=== PATIENT | male | born 1960 | race Caucasian/White ===

== ENCOUNTER 2020-02-29 12:09 | Outpatient (CLI) | payer OTHER, SELFPAY ==
--- NOTE | 2020-02-29 12:18 | USCV_ITS ---
Geovanni Servin Age: 59 Gender: M : 1960 Exam Date: 02/29/2020 12:28 Ordering Phys: Francis Barnes Technologist: Ciro Chan [place] [facility] [place]: CHEST PAIN BP: 150 / 80 HR: Rhythm: Sinus Technical Quality: Suboptimal MEASUREMENTS (Male / Female) Normal Values 2D ECHO LV Diastolic Diameter PLAX 4.6 cm 4.2 - 5.9 / 3.9 - 5.3 cm LV Systolic Diameter PLAX 2.8 cm IVS Diastolic Thickness 0.8 cm 0.6 - 1.0 / 0.6 - 0.9 cm IVS Systolic Thickness 1.4 cm LVPW Diastolic Thickness 1.2 cm 0.6 - 1.0 / 0.6 - 0.9 cm LVPW Systolic Thickness 1.7 cm LVOT Diameter 2.0 cm LV Ejection Fraction 2D Teich 71.2 % LV Ejection Fraction MOD 2C 67.1 % LV Ejection Fraction 2C AL 67.7 % LA Diameter 4.0 cm LA Width 3.5 cm LA Height 4.2 cm RA Width 3.6 cm RA Height 4.1 cm Aorta at Sinotubular Diameter 1.1 cm M-MODE LV Diastolic Diameter MM 6.3 cm 4.2 - 5.9 / 3.9 - 5.3 cm LV Systolic Diameter MM 4.3 cm LV Ejection Fraction MM Teich 59.6 % IVS Diastolic Thickness MM 1.0 cm 0.6 - 1.0 / 0.6 - 0.9 cm IVS Systolic Thickness MM 1.5 cm LVPW Diastolic Thickness MM 1.3 cm 0.6 - 1.0 / 0.6 - 0.9 cm LVPW Systolic Thickness MM 1.8 cm RV Diastolic Diameter MM 1.7 cm Aortic Annulus Diameter 3.3 cm LA Ao Ratio MM 1.5 MV E Point Septal Separation 1.3 cm DOPPLER AV Peak Velocity 176.0 cm/s LVOT Peak Velocity 96.0 cm/s AV Area Cont Eq vti 2.3 cm squared AV Area Cont Eq pk 1.8 cm squared MV Area PHT 5.1 cm squared Mitral E to A Ratio 1.0 MV E' Velocity 45.0 cm/s Mitral E to MV E' Ratio 10.9 Mitral E to LV E' Lateral Ratio 10.7 Mitral E to LV E' Septal Ratio 11.4 TR Peak Velocity 133.7 cm/s TR Peak Gradient 7.1 mmHg TV Peak E Velocity 76.0 cm/s Right Atrial Pressure 3.0 mmHg Pulmonary Artery Systolic Pressu 10.1 mmHg FINDINGS Left Ventricle Normal left ventricular cavity size. Normal left ventricular systolic function. No regional wall motion abnormalities. Left ventricular ejection fraction is estimated at 59 %. Grade II/IV diastolic dysfunction, moderately elevated filling pressures. Right Ventricle The right ventricle is normal in size and function. Right Atrium The right atrium is normal in size. Left Atrium The left atrium is normal in size. Mitral Valve Structurally normal mitral valve without significant stenosis or prolapse. There is no mitral regurgitation. Aortic Valve Moderate aortic valve calcification. No aortic valve stenosis. No aortic valve regurgitation. Tricuspid Valve Structurally normal tricuspid valve without significant stenosis or regurgitation. Pulmonary artery systolic pressure is normal. Pulmonic Valve Structurally normal pulmonic valve without significant stenosis. There is no pulmonic regurgitation. Pericardium Normal pericardium without effusion. Aorta Normal ascending aorta dimension. CONCLUSIONS 1-Normal left ventricular cavity size. Normal left ventricular systolic function. No regional wall motion abnormalities. Left ventricular ejection fraction is estimated at 59 %. Grade II/IV diastolic dysfunction, moderately elevated filling pressures. 2-Moderate aortic valve calcification. No aortic valve stenosis. No aortic valve regurgitation. 3-There is no pericardial effusion. 4-Pulmonary artery systolic pressure is within normal limits. 5-Right atrial pressure is around 5 mm of mercury. 6-There are no prior echocardiogram studies to compare. Meenu Cisneros MD (Electronically Signed) Final Date: 29 February 2020 15:27 S
== END 2020-02-29 12:10 | disposition home or self-care (01) ==
LOC: RAD 12:13
PROVIDERS: PCP Physician Assistant Medical; Visit Provider Physician Assistant Medical
DX: R07.9 Chest pain, unspecified (principal); I70.0 Atherosclerosis of aorta
CPT/HCPCS: 93306

== ENCOUNTER 2020-04-14 20:25 | Emergency (ER) | payer OTHER, SELFPAY ==
[2020-04-14] VITALS (7 sets, daily range): BP systolic 137–181; BP diastolic 53–88; PULSE 57–66; RESP 17–18; TEMP 36.7; O2SAT 90–97; BMI 33.4
--- NOTE | 2020-04-14 20:31 | XRR_ITS ---
PROCEDURE INFORMATION: Exam: XR Chest, 1 View Exam date and time: 04/14/2020 8:46 PM Age: 59 years old Clinical indication: Shortness of breath; Additional info: Cp TECHNIQUE: Imaging protocol: XR of the chest Views: 1 view. Total images: 1 COMPARISON: CR Chest 2 views* [id number] 02/08/2018 3:38 AM FINDINGS: Lungs: COPD/chronic bronchitis. Minimal discoid atelectasis lung bases. Pleural space: Unremarkable. No pleural effusion. No pneumothorax. Heart/Mediastinum: Unremarkable. No cardiomegaly. Bones/joints: Degenerative disease of the spine. XR/XR chest 1V portable [id number] IMPRESSION: 1. Nonac minimal discoid atelectasis lung bases. 2. COPD/chronic bronchitis.
--- NOTE | 2020-04-14 20:32 | ECG_ITS ---
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 Measurements Intervals [place] Rate: 61 P: 64 MI: 153 QRS: 80 QRSD: 132 T: 57 QT: 413 QTc: 418 Interpretive Statements SINUS RHYTHM RIGHT BUNDLE BRANCH BLOCK [120+ ms QRS DURATION, UPRIGHT V1, 40+ ms S IN I/aVL/V4/V5/V6] No previous ECG available for comparison Electronically Signed On 04-15-2020 20:15:56 ACUTE CARE PHYSICAL THERAPIST by Kaitlyn Pepper M.D. [id number]
--- NOTE | 2020-04-14 20:38 | ED_ITS ---
HPI - SOB/Dyspnea General: Chief Complaint: Shortness of Breath/Dyspnea Stated Complaint: SOB Time Seen by Provider: 04/14/20 20:27 Source: patient and EMS Mode of arrival: EMS Limitations: no limitations History of Present Illness: HPI Narrative: 59-year-old male who has a history of COPD states he started having some shortness of breath earlier today. He states he took a breathing treatment and felt improved but then started have a right-sided sharp chest pain he stated lasted 20 to 30 seconds. He states that it resolved. He states it was 2 hours ago. He states he called EMS. He states he feels much improved and has no complaints at this time. His pulse ox is 93% which he states is normal for him. Denies any recent long trips. Denies any recent surgeries. MD elicited complaint: shortness of breath Associated symptoms: Reports chest pain; Deny abdominal pain, fever(s), nausea or vomiting Review of Systems Const: Denies: fever(s), chills, body aches or change in appetite Eyes: Denies: blurry vision or eye discomfort ENMT: Denies: throat pain or dental pain Card: Reports: chest pain Resp: Reports: dyspnea GI: Denies: abdominal pain, nausea, vomiting or diarrhea : Denies: dysuria Musc: Denies: neck pain or back pain Skin/Breast: Denies: rash Neuro: Denies: headache(s) Psych: Denies: depression Benny/Lymph: Denies: easy bruising All/Imm: Denies: urticaria PFSH ED PFSH: Medical History Arthritis Chest pain The EKG done today revealed normal sinus rhythm with right bundle branch block. No significant ST-T changes. COPD (chronic obstructive pulmonary disease) Smoked for 30 years or so , 3PPD, quit 10 y;ears ago Elevated blood pressure reading Fracture, clavicle Heart murmur Leg fracture Shortness of breath SOB (shortness of breath) Family History Brother CAD (coronary artery disease) Lung disease Mother Chronic kidney disease (CKD) Lung disease Family/Other Diabetes Father Lung disease Denies family history of Clotting disorder Dementia Suicide Anesthesia complication Bleeding disorder Cancer Stroke Social History Smoking and tobacco status: current every day smoker smokeless tobacco Smokeless tobacco user: chewing tobacco Alcohol intake: current Alcohol intake frequency: holidays/special occasions only Physical Exam Const: COMMON NORMALS: no acute distress, patient oriented x3 and healthy appearing HENMT: COMMON NORMALS: normocephalic and atraumatic HEAD & SCALP: normocephalic and atraumatic Eye: COMMON NORMALS: Equal, round and reactive pupils present and EOMs intact bilaterally PUPIL: Yes Equal, round and reactive pupils present Neck/C-Spine: COMMON NORMALS: full ROM and supple Chest: COMMONS NORMALS: normal inspection of the chest and normal palpation of entire chest wall Resp: COMMON NORMALS: normal respiratory effort, No retractions, No use of accessory muscles and clear to auscultation bilaterally AUSCULTATION: clear to auscultation bilaterally Cardio: COMMON NORMALS: regular rate, regular rhythm and No murmurs present (Cardio) RATE: regular rate RHYTHM: regular rhythm GI: COMMON NORMALS: Normal to inspection, nondistended, normoactive bowel sounds present, Soft to palpation, non-tender and no masses PALPATION: Yes Soft to palpation Extremity: COMMON NORMALS: normal to inspection and full ROM Neuro: COMMON NORMALS: patient oriented x3, moves all extremities and no focal motor deficits Psych: COMMON NORMALS: mental status grossly normal, Normal thought process present and cooperative THOUGHT PROCESS: Normal thought process present Skin: COMMON NORMALS: no rashes or lesions noted and no wounds GENERAL SKIN EXAM: no rashes or lesions noted Course Vital Signs: Vital signs: Vital Signs Temperature 98.0 F 04/14/20 20:33 Pulse Rate 61 04/14/20 22:26 Respiratory Rate 18 04/14/20 22:26 Blood Pressure 145/72 04/14/20 22:26 Pulse Oximetry 92 04/14/20 22:26 MDM - SOB/Dyspnea MDM Narrative: Medical decision making narrative: Geovanni presents here with chest pain is atypical in nature. Patient's initial and repeat troponins are normal. He has a stress test set up for Tuesday. I feel he is stable for discharge and is to follow-up then. He is return if worsening. He understands agrees to plan Lab Data: Labs: Lab Results 04/14/20 04/14/20 04/14/20 Range/Units 20:44 20:44 20:44 WBC 13.5 H (4.0-10.0) 10^3/ uL RBC 4.56 (4.1-5.3) 10^6/u L Hgb 12.9 (11.7-16.6) g/dL Hct 41.2 L (42.0-52.0) % MCV 90.4 (80-94) fL MCH 28.3 (28.0-34.0) pg MCHC 31.3 (30.0-36.0) g/dL RDW 12.9 (12.1-15.1) % Plt Count 299 (130-400) 10^3/c mm MPV 10.3 (7.4-10.4) fL Neut % (Auto) 62.8 % Lymph % (Auto) 25.2 % [place] % (Auto) 6.8 % Eos % (Auto) 3.6 % Baso % (Auto) 0.9 % Neut # (Auto) 8.45 H (1.8-7.7) 10^3/u L Lymph # (Auto) 3.4 (0.8-4.8) 10^3/u L [place] # (Auto) 0.9 (0.2-0.9) 10^3/u L Eos # (Auto) 0.5 (0.0-0.8) 10^3/u L Baso # (Auto) 0.1 (0.0-0.1) 10^3/u L Nucleated RBC % (a uto) 0 % Nucleated RBCs # 0.0 /100WBC Sodium 136 (136-145) mmol/L Potassium 4.5 (3.5-5.1) mmol/L Chloride 98 (98-107) mmol/L Carbon Dioxide 29 (22-29) mmol/L Anion Gap 13.5 (5-19) BUN 15 (8-23) mg/dL Creatinine 0.9 (0.7-1.2) mg/dL GFR Calculation 85.8 L (90-130) mL/min Glucose 194 H (65-115) mg/dL Calculated Osmolal ity 288 (285-295) mOsm/k g Calcium 9.3 (8.5-10.5) mg/dL Total Bilirubin 0.3 (0.15-1.2) mg/dL AST 20 (0-40) U/L ALT 30 (0-41) U/L Alkaline Phosphata se 68 (40-130) IU/L Troponin T Baselin e 25 H (0-15) ng/L Troponin T 120 Min [place] (0-15) ng/L Delta Troponin T (0-10) ABS# NT-Pro-B Natriuret Pep 205 H (0-125) pg/mL Total Protein 6.7 (6.6-8.7) g/dL Albumin 4.0 (3.5-5.2) g/dL Globulin 2.7 (1.3-4.6) g/dL 04/14/20 Range/Units 22:24 WBC (4.0-10.0) 10^3/ uL RBC (4.1-5.3) 10^6/u L Hgb (11.7-16.6) g/dL Hct (42.0-52.0) % MCV (80-94) fL MCH (28.0-34.0) pg MCHC (30.0-36.0) g/dL RDW (12.1-15.1) % Plt Count (130-400) 10^3/c mm MPV (7.4-10.4) fL Neut % (Auto) % Lymph % (Auto) % [place] % (Auto) % Eos % (Auto) % Baso % (Auto) % Neut # (Auto) (1.8-7.7) 10^3/u L Lymph # (Auto) (0.8-4.8) 10^3/u L [place] # (Auto) (0.2-0.9) 10^3/u L Eos # (Auto) (0.0-0.8) 10^3/u L Baso # (Auto) (0.0-0.1) 10^3/u L Nucleated RBC % (a uto) % Nucleated RBCs # /100WBC Sodium (136-145) mmol/L Potassium (3.5-5.1) mmol/L Chloride (98-107) mmol/L Carbon Dioxide (22-29) mmol/L Anion Gap (5-19) BUN (8-23) mg/dL Creatinine (0.7-1.2) mg/dL GFR Calculation (90-130) mL/min Glucose (65-115) mg/dL Calculated Osmolal ity (285-295) mOsm/k g Calcium (8.5-10.5) mg/dL Total Bilirubin (0.15-1.2) mg/dL AST (0-40) U/L ALT (0-41) U/L Alkaline Phosphata se (40-130) IU/L Troponin T Baselin e (0-15) ng/L Troponin T 120 Min [place] 26.97 H (0-15) ng/L Delta Troponin T 1.97 (0-10) ABS# NT-Pro-B Natriuret Pep (0-125) pg/mL Total Protein (6.6-8.7) g/dL Albumin (3.5-5.2) g/dL Globulin (1.3-4.6) g/dL Imaging Data^: CXR: Radiologist's impression: [place] [address] XRay Report Signed Patient: Geovanni Servin Unit #: [id number] : 1960 Age/Sex: 59 / M ADM Date: 04/14/20 Loc: ER Room/Bed: Attending Dr: Ordering Provider/Ordering MD: Suzette Dai MD Date of Service: 04/14/20 Procedure(s): XR chest 1V portable [id number] Accession Number(s): [id number] Report Number: [id number] PROCEDURE INFORMATION: Exam: XR Chest, 1 View Exam date and time: 04/14/2020 8:46 PM Age: 59 years old Clinical indication: Shortness of breath; Additional info: Cp TECHNIQUE: Imaging protocol: XR of the chest Views: 1 view. Total images: 1 COMPARISON: CR Chest 2 views* [id number] 02/08/2018 3:38 AM FINDINGS: Lungs: COPD/chronic bronchitis. Minimal discoid atelectasis lung bases. Pleural space: Unremarkable. No pleural effusion. No pneumothorax. Heart/Mediastinum: Unremarkable. No cardiomegaly. Bones/joints: Degenerative disease of the spine. XR/XR chest 1V portable [id number] IMPRESSION: 1. Nonac minimal discoid atelectasis lung bases. 2. COPD/chronic bronchitis. EKG Data^: EKG 1: Attestation: I personally reviewed and interpreted this EKG as follows: EKG Interpretation Date: 04/14/20 EKG interpretation time: 20:34 Interpretation: Normal sinus rhythm heart rate [address] or T wave abnormalities QRS 132 QTC 416 Discharge Plan Discharge Patient Disposition: Home Clinical Impression: Chest pain Qualifiers: Chest pain type: unspecified Qualified Code(s): R07.9 - Chest pain, unspecified Condition: Stable Prescriptions: No Action tamsulosin 0.4 mg capsule 0.4 mg PO DAILY@21 RF: 0 tadalafil 5 mg tablet See Rx Instructions .ROUTE .COMPLEX RF: 0 Breztri Aerosphere 160-9-4.8 mcg/actuation HFA aerosol inhaler 2 inh inhalation BID RF: 0 albuterol sulfate 2.5 mg /3 mL (0.083 %) solution for nebulization 2.5 mg inhalation QID PRN (Reason: shortness of breath or wheezing) RF: 0 nitroglycerin 0.4 mg tablet, sublingual 0.4 mg sublingual Q5M PRN (Reason: chest pain) 30 Days Qty: 30 RF: 3 Aspir-81 81 mg Tablet,Delayed Release (Dr/Ec) 81 mg PO DAILY@04 RF: 0 ibuprofen 200 mg Tablet 400 mg PO PRN RF: 0 Ventolin HFA 90 mcg/actuation HFA aerosol inhaler 2 puff INHALATION Q4H PRN (Reason: Shortness Of Breath) RF: 0 Glucosamine Chondroitin 550-30-1 mg Capsule 1 cap PO BID@ RF: 0 Lung Renew 1 cap PO BID RF: 0 Turmeric Curcumin 500 mg PO DAILY@04 RF: 0 amlodipine 10 mg tablet 5 mg PO BID@ RF: 0 metoprolol tartrate 25 mg tablet 25 mg PO Q12H RF: 0 Discharge Orders: Discharge ED (Routine); Ordered 04/14/20 Ordered By: Suzette Dai Referrals: Francis Barnes [Primary Care Provider] - Discharge Diet: Advance as tolerated Discharge Activity: Resume usual activity Patient Instructions: Chest Pain (ED) Coding Level of Care Code ED Dining Car Server for Chg Fwd Exam Comprehensive
[2020-04-14 20:54] LABS: Basophils # 0.1 10^3/uL (0.0-0.1); Basophils % 0.9 %; Eosinophils # 0.5 10^3/uL (0.0-0.8); Eosinophils % 3.6 %; Hematocrit 41.2 % (42.0-52.0); Hemoglobin 12.9 g/dL (11.7-16.6); Lymphocytes # 3.4 10^3/uL (0.8-4.8); Lymphocytes % 25.2 %; Mean Corpuscular HGB Conc 31.3 g/dL (30.0-36.0); Mean Corpuscular Hemoglobin 28.3 pg (28.0-34.0); Mean Corpuscular Volume 90.4 fL (80-94); Mean Platelet Volume 10.3 fL (7.4-10.4); Monocytes # 0.9 10^3/uL (0.2-0.9); Monocytes % 6.8 %; Neutrophils # 8.45 10^3/uL (1.8-7.7); Neutrophils % 62.8 %; Nucleated Red Blood Cells % 0 %; Platelet Count 299 10^3/cmm (130-400); Red Blood Count 4.56 10^6/uL (4.1-5.3); Red Cell Distribution Width 12.9 % (12.1-15.1); White Blood Count 13.5 10^3/uL (4.0-10.0)
[2020-04-14 21:10] LABS: Troponin(5th) Baseline 25 ng/L (0-15)
[2020-04-14 21:18] LABS: Alanine Aminotransferase 30 U/L (0-41); Alkaline Phosphatase 68 IU/L (40-130); Anion Gap 13.5 (5-19); Aspartate Amino Transferase 20 U/L (0-40); Blood Urea Nitrogen 15 mg/dL (8-23); Calcium 9.3 mg/dL (8.5-10.5); Carbon Dioxide 29 mmol/L (22-29); Chloride 98 mmol/L (98-107); Globulin 2.7 g/dL (1.3-4.6); Glomerular Filtration Rate 85.8 mL/min (90-130); Glucose 194 mg/dL (65-115); NT Pro B Type Natriuretic Pept 205 pg/mL (0-125); Osmolality Calculated 288 mOsm/kg (285-295); Potassium 4.5 mmol/L (3.5-5.1); Sodium 136 mmol/L (136-145); Total Bilirubin 0.3 mg/dL (0.15-1.2); Total Protein 6.7 g/dL (6.6-8.7)
[2020-04-14] MEDS: hyDRALAzine 20 mg/mL INJ 1 mL 10 MG IVP (21:42)
--- NOTE | 2020-04-14 21:42 | PC.PHAR ---
pt brought in medication bottles-pt states he uses the albuterol in the nebulizer bid-pt states he uses the breztri inhaler sometimes-pt states the dr told him to stop taking the tadalafil 5mg ext med history shows filled on 03/24/2020 90d/s-pt states his amlodipine is 10mg po daily pt states he has been taking his 5mg tab bid
[2020-04-14] MEDS: albuterol 8 gm MDI 2 PUFF INHALATION (21:48)
[2020-04-14 22:45] LABS: Troponin 5 2HR 26.97 ng/L (0-15); Troponin 5 2HR Delta 1.97 ABS# (0-10)
== END 2020-04-14 23:03 | disposition home or self-care (01) ==
PROVIDERS: Emergency Provider Emergency Medicine; PCP Physician Assistant Medical
DX: R07.9 Chest pain, unspecified (principal); Z79.82 Long term (current) use of aspirin; J44.9 Chronic obstructive pulmonary disease, unspecified; F17.220 Nicotine dependence, chewing tobacco, uncomplicated
CPT/HCPCS: 12345; 71045; 80053; 83880; 84484; 85025; 93005; 94640; 96374; 96375; 99282; 99284; J0360; J2930; J3535

== ENCOUNTER 2020-04-18 09:03 | Outpatient (CLI) | payer OTHER, SELFPAY ==
[2020-04-18 09:25] VITALS: BMI 36.5
--- NOTE | 2020-04-18 09:25 | ECG_ITS ---
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 Interpretive Statements NAME OF STUDY: LEXISCAN SESTAMIBI STRESS TEST INDICATION: Chest Pain, PROCEDURE: At the baseline, the EKG revealed sinus bradycardia with right bundle branch block pattern. No significant ST-T changes.. The baseline blood pressure was 153/83 mm Hg with a heart rate of 51 beats/min. Lexiscan was infused over a period of 20 seconds. A total of 0.4 milligrams of Lexiscan was infused. The stress phase was continued for a total of 5 minutes. Heart rate at the end of the stress phase was 65 with a blood pressure 161/76. The EKG at the peak infusion revealed no significant changes. Sestamibi was injected 20 seconds after the Lexiscan infusion. Blood pressure at the end of the recovery phase was not obtained ; the heart rate was 66 per minute. CONCLUSION: 1. No significant EKG changes with the LexiScan infusion 2. No LexiScan induced chest pain or cardiac arrhythmia 3. Normal blood pressure and heart rate response 4. Sestamibi/sestamibi perfusion scan pending; see separate report. Electronically Signed On 04-25-2020 12:01:57 DONOR CENTER TECHNICIAN by Juliet Richardson M.D. [id number]
--- NOTE | 2020-04-18 09:26 | NMCV_ITS ---
NM lizeth perf SPECT r/s* [id number] Geovanni Servin Age: 59 Gender: M : 1960 Exam Date: 04/18/2020 10:21 Ordering Phys: Juliet Richardson MD ([email or web address]) Technologist: KENNY Greer Exam Location: [facility] Indications: SHORTNESS OF BREATH STRESS TEST Please see separate stress test report in [facility] for full findings IMAGE PROTOCOL Rest/Stress 1 Lexiscan Day Radiopharmaceutical Dose (mCi) Administration Site Administered by Rest: Tc-99m 10.5 IV KENNY Greer Sestamibi Stress:Tc-99m 32.6 IV KENNY Silva Sestamibi Rest: 18-Apr-2020 60 Discovery 630 Stress: 18-Apr-2020 30 Discovery 630 0.4mg Lexiscan. Images obtained in supine and prone position. SPECT RESULTS Technical Quality: Excellent Raw Data Analysis: Normal Image Corrections: No attenuation or motion correction applied Summed Stress Score: 11 Summed Rest Score: 2 Summed Difference Score: 9 PERFUSION FINDINGS Moderate area of decreased tracer uptake was noted in the mid and apical inferior, mid inferoseptal, mid anteroseptal, and all the apical segments including LV apex. Significant reversibility was noted in all the segments. FUNCTIONAL RESULTS (calculated via Gated SPECT) Stress Image LV EF (%): 72 Stress EDV (mL):103 TID: 0.94 Stress ESV (mL):29 FUNCTIONAL FINDINGS: Segmental wall motion analysis revealing no gross wall motion normalities. IMPRESSIONS 1. Myocardial perfusion imaging revealing moderate area of decreased tracer uptake in the inferior, septal, anteroseptal and apical segments with significant reversibility, suggestive of ischemia mostly in the distribution of the left and descending artery and right coronary artery. 2. Normal LV ejection fraction 72%. 3. LV wall motion analysis revealing no gross wall motion abnormalities. 4. Normal LV volume. No similar previous studies are available for comparison Dr Juliet Richardson MD FAC (Electronically Signed) Final Date: 18 April 2020 16:23 S
[2020-04-18] MEDS: regadenoson 0.4 Mg/5 ml Syringe IVP (10:53)
[2020-04-18 11:11] VITALS: BP 158/66; PULSE 67
== END 2020-04-18 09:04 | disposition home or self-care (01) ==
LOC: CDL 09:04
PROVIDERS: PCP Physician Assistant Medical; Visit Provider Internal Medicine Cardiovascular Disease
DX: R06.02 Shortness of breath (principal); R07.9 Chest pain, unspecified
CPT/HCPCS: 78452; 93017; A9500; J2785

== ENCOUNTER → 2020-05-28 13:56 | Outpatient (BNVA) | payer OTHER, SELFPAY | PROVIDERS: PCP Physician Assistant Medical; Visit Provider Internal Medicine Cardiovascular Disease | DX: Z20.822 Contact with and (suspected) exposure to COVID-19 (principal) | CPT/HCPCS: 87635 ==

== ENCOUNTER 2020-06-03 09:37 | Observation (INO) | payer OTHER, SELFPAY ==
[2020-05-28 14:08] LABS: Basophils # 0.1 10^3/uL (0.0-0.1); Basophils % 0.8 %; Eosinophils # 0.5 10^3/uL (0.0-0.8); Hematocrit 42.6 % (42.0-52.0); Hemoglobin 13.3 g/dL (11.7-16.6); Lymphocytes # 2.6 10^3/uL (0.8-4.8); Lymphocytes % 21.9 %; Mean Corpuscular HGB Conc 31.2 g/dL (30.0-36.0); Mean Corpuscular Hemoglobin 28.5 pg (28.0-34.0); Mean Corpuscular Volume 91.4 fL (80-94); Mean Platelet Volume 9.7 fL (7.4-10.4); Monocytes # 1.1 10^3/uL (0.2-0.9); Monocytes % 8.9 %; Neutrophils # 7.53 10^3/uL (1.8-7.7); Neutrophils % 63.6 %; Nucleated Red Blood Cells % 0 %; Platelet Count 305 10^3/cmm (130-400); Red Blood Count 4.66 10^6/uL (4.1-5.3); White Blood Count 11.8 10^3/uL (4.0-10.0)
[2020-05-28 14:42] LABS: Alanine Aminotransferase 31 U/L (0-41); Albumin Level 4.1 g/dL (3.5-5.2); Alkaline Phosphatase 69 IU/L (40-130); Anion Gap 11.5 (5-19); Aspartate Amino Transferase 26 U/L (0-40); Blood Urea Nitrogen 17 mg/dL (8-23); Calcium 9.2 mg/dL (8.5-10.5); Carbon Dioxide 29 mmol/L (22-29); Chloride 100 mmol/L (98-107); Chol HDL Ratio 2.49 mg/dL (1.0-5.00); Cholesterol 112 mg/dL (0-200); Globulin 3.5 g/dL (1.3-4.6); Glomerular Filtration Rate 98.3 mL/min (90-130); Glucose 85 mg/dL (65-115); HDL Cholesterol 45 mg/dL (60-100); LDL Cholesterol Calculated 50 mg/dL (50-129); LDL HDL Ratio 1.11 RATIO (0.00-3.22); Osmolality Calculated 283 mOsm/kg (285-295); Potassium 4.5 mmol/L (3.5-5.1); Sodium 136 mmol/L (136-145); Total Bilirubin 0.3 mg/dL (0.15-1.2); Total Protein 7.6 g/dL (6.6-8.7); Triglycerides 83 mg/dL (0-150)
[2020-05-28 14:55] LABS: INR 0.96 (0.8-1.2)
[2020-06-03] VITALS (44 sets, daily range): BP systolic 114–166; BP diastolic 60–81; PULSE 46–64; RESP 7–24; TEMP 36.3–36.6; O2SAT 90–96; BMI 34.8
[2020-06-03] MEDS: diphenhydrAMINE 50 mg Capsule PO (07:30)
--- NOTE | 2020-06-03 08:19 | W.PM.OPSUD ---
Surgery/Procedure H&P Update DATE OF PROCEDURE: June 03, 2020 DATE H&P PERFORMED: 06/03/20 H&P UPDATE INFORMATION: I have reviewed H&P completed within last 30 days and I have examined patient prior to procedure PREOP DIAGNOSIS: ASHD/Abnormal stress test PRIMARY INDICATION FOR PROCEDURE: Chest pain PLANNED PROCEDURE: Operation Date: 06/03/20 08:30 Proposed Procedures p left Cardiac Catheterization 40179 R94.39(Left) - Juliet Richardson MD PATIENT REASSESSED PRIOR TO SEDATION, WITH NO CHANGE NOTED: Yes PHYSICAL EXAM: alert, oriented x 3, clear to auscultation bilaterally and regular rate & rhythm AIRWAY EVAL/ANESTHESIA PLAN: normal airway, ASA II, Monitored Anesthesia, Local Anesthesia, Risks, benefits & alternatives of sedation and/or procedure discussed and Patient agrees to continue as planned
--- NOTE | 2020-06-03 08:21 | P.HP_ITS ---
Providers/Chief Complaint Admitting Physician: DR MARIUSZ Richardson Primary Care Provider: Francis Barnes Chief Complaint: left Cardiac Catheterization History of Present Illness Geovanni Servin is a 59 year old male with a history of COPD/dyslipidemia, patient with chest pain. He had a myocardial perfusion imaging which revealed areas of reversible defects, suggestive of ischemia in the distribution of the left anterior descending artery and the right coronary artery. Continues to have shortness of breath with activities, limiting his exercise tolerance. For further evaluation of his symptoms, a cardiac catheterization was recommended. Patient described the pain as pressure-like in nature, each time lasting for 5 to 10 minutes and then goes away, usually with rest. The pain radiates to the both arms and also the neck. He has these episodes of pain at least 2 or 3 times a week. Review of Systems Narrative: CONSTITUTIONAL: No fever or chills. Has easy fatigability and shortness of breath with exertion EYES: No blurring of vision or other visual disturbances lately. ENT: No hoarseness of voice, auditory disturbances or sore throat. CARDIOVASCULAR: As mentioned above. RESPIRATORY: History of COPD GASTROINTESTINAL: No hematemesis or melena. GENITOURINARY: No dysuria or hematuria. INTEGUMENTARY: No skin rashes or history of skin cancer. NEURO: No transient ischemic attacks or amaurosis. PSYCHIATRIC: No history of psychosis or major depression. HEMATOLOGIC: No bleeding disorders or significant anemia. ENDOCRINE: No history of polyuria or polydipsia. MUSCULOSKELETAL: No recent joint pain or swelling. ALLERGY/IMMUNOLOGY: As mentioned above. Medications/Allergies Home Medications Medication Instructions Recorded Confirmed Last Taken Type albuterol sulfate 2.5 mg INHALATION QID PRN 03/24/20 06/03/20 06/03/20 05:00 History budesonide 160 mcg-glycopyr 9 2 inh INHALATION BID 03/24/20 06/03/20 06/03/20 05:00 History mcg-formot 4.8 mcg/actuation HFA inhaler nitroglycerin 0.4 mg sublingual 0.4 mg SUBLINGUAL Q5M PRN 30 Days 03/24/20 06/03/20 04/14/20 18:45 Rx tablet #30 tab tamsulosin 0.4 mg capsule 0.4 mg PO DAILY@21 03/24/20 06/03/20 06/03/20 05:00 History Lung Renew 1 cap PO BID 04/14/20 06/03/20 06/03/20 05:00 History Turmeric Curcumin 500 mg PO DAILY@04 04/14/20 06/03/20 06/03/20 05:00 History albuterol sulfate [Ventolin HFA] 2 puff INHALATION Q4H PRN 04/14/20 06/03/20 06/03/20 05:00 History amlodipine 5 mg PO BID@04/14/20 06/03/20 06/03/20 05:00 History aspirin [Aspir-81] 81 mg PO DAILY@04 04/14/20 06/03/20 06/03/20 05:00 History glucos sul 2GHk-vlu-ewxdr-C-Mn 1 cap PO BID@04/14/20 06/03/20 06/03/20 05:00 History [Glucosamine Chondroitin] ibuprofen 400 mg PO PRN 04/14/20 06/03/20 Unknown History metoprolol tartrate 25 mg PO Q12H 04/14/20 06/03/20 06/03/20 05:00 History atorvastatin 40 mg tablet 40 mg PO DAILY 30 Days #30 tab 04/28/20 06/03/20 06/02/20 21:00 Rx Allergies Allergy/AdvReac Type Severity Reaction Status Date / Time No Known Allergies Allergy Verified 06/03/20 08:02 PFSH Acute PFSH: Medical History Arthritis Chest pain The EKG done today revealed normal sinus rhythm with right bundle branch bloc k. No significant ST-T changes. COPD (chronic obstructive pulmonary disease) Smoked for 30 years or so , 3PPD, quit 10 y;ears ago Elevated blood pressure reading Fracture, clavicle Heart murmur Leg fracture Shortness of breath SOB (shortness of breath) Family History Brother CAD (coronary artery disease) Lung disease Mother Chronic kidney disease (CKD) Lung disease Family/Other Diabetes Father Lung disease Denies family history of Clotting disorder Dementia Suicide Anesthesia complication Bleeding disorder Cancer Stroke Social History Smoking and tobacco status: current every day smoker smokeless tobacco Smokeless tobacco user: chewing tobacco Alcohol intake: current Alcohol intake frequency: holidays/special occasions only Vitals/I&O/Wt Last Vital Signs Temp 97.3 F L 06/03/20 07:51 Pulse 54 L 06/03/20 07:51 Resp 14 06/03/20 07:51 BP 144/77 06/03/20 07:51 Pulse Ox 94 06/03/20 07:51 Weight last 48 hrs Weight 229 lb Physical Exam Narrative: EXAM NARRATIVE: GENERAL: The patient is alert and oriented times three. Not in any acute distress. HEENT: No significant pallor, icterus or lymphadenopathy. The pupils are reactant to light. Oral cavity: There are no mucous membrane lesions. Funduscopic examination: The fundus is not visualized NECK: Trachea appears to be central. No masses noted. No JVD or thyromegaly appreciated. No carotid bruit. RESPIRATORY: Chest is symmetrical. No intercostals muscle retraction or any accessory muscle activation. There is no chest wall tenderness. Breath sounds are heard bilaterally. No rales or rhonchi heard. No evidence of any consol idation. BREASTS: Deferred. HEART: The heart sounds are normal. No S3 or S4. Short systolic murmur in the aortic area. No diastolic murmurs. No pericardial rub. ABDOMEN: No vessel pulsations or distention. No tenderness. No organomegaly appreciated. No abdominal bruit. Bowel sounds are normally heard. : Deferred. RECTAL: Deferred. LYMPHATIC: No lymphadenopathy noted in the neck or groin. EXTREMITIES: No edema or cyanosis. No clubbing. The pulses are symmetrical bilaterally. The radial, femoral, dorsalis pedis and the posterior tibial pulses are palpated and found to be in good volume and amplitude. MUSCULOSKELETAL: No acute joint deformities or swelling. SKIN: There are no significant scars or skin rash noted. NEUROPSYCHIATRIC: The patient is alert and oriented x3. Appears to be in a good mood. The higher functions are grossly within normal limits. No tremors or rigidity noted. Data : 05/28/20 13:30 05/28/20 13:30 A&P Assessment and plan (1) Abnormal cardiovascular stress test: I discussed with the patient, the implication of the test findings. In order to further evaluate his coronary status, he requires a cardiac catheterization. The risk of bleeding, hematoma, vascular injury, myocardial infarction, CVA, renal failure and other concomitant complications were explained in detail. Patient understood this well and consented to proceed. Status: Acute (2) Dyslipidemia: Continue on the current medications Status: Acute (3) SOB (shortness of breath): This could be multifactorial. Ischemia could be contributing factor. Patient is known to have COPD. Continue on the current treatment for the COPD. Status: Acute (4) Elevated blood pressure reading: Currently normotensive. Continue on the current medications Status: Acute Additional A&P Information Based on the results of the above test, further recommendations will be made. Addendum Patient underwent left heart catheterization with left and right coronary angiogram today. He was found to have a high-grade lesion in the proximal to mid LAD. Since the coronary lesion is complex he would benefit from atherectomy followed by angioplasty and stent placement. This is going to be done tomorrow. The patient is admitted to hospital for close monitoring and management. Attestations Medical Necessity Statement*: Patient may require 1 midnight stay, for further management of his condition. Coding Level of Care Code Acute Ethnic Origins Teacher for Yaneli Ordonez Diagnoses Abnormal cardiovascular stress test R94.39 Dyslipidemia E78.5 SOB (shortness of breath) R06.02 Elevated blood pressure reading R03.0
--- NOTE | 2020-06-03 08:30 | XACV_ITS ---
Ht: 173 cm Wt: 104 kg BSA: 2.27 m2 Gender: Male : 1960 Any Known Allergies: No known allergies Exam Priority: Routine Procedure(s): Procedure Description: Diagnostic procedure Diagnostic Cath Status: Elective Diagnostic Findings * No significant disease noted in the Left Main, LAD, Circumflex, or RCA coronary arteries. * The left main is a medium to large caliber vessel with minimal ostial narrowing. No significant stenotic lesions were noted. * The left-sided descending artery is a medium caliber vessel which appears to wrap around the LV apex. The proximal LAD was found to have an eccentric tapering narrowing of around 50% mid to the ostium. Just before the second septal rrt, there was a high-grade calcified lesion of around 90%. The proximal to mid LAD was found to have diffuse disease. The distal LAD was found to have mild diffuse intimal irregularities. Around the apex, the artery was found to have around 50% tubular narrowing. No other significant stenotic lesions were noted.. * The left circumflex artery is a medium caliber vessel which was found to have around 40% tubular narrowing proximally. The first and second obtuse marginal branches were found to have mild diffuse disease. No significant stenotic lesions were noted. * The right coronary artery is a medium caliber vessel with mild diffuse disease, lesions ranging from 20 to 30%. No significant stenotic lesions were seen. Conclusions 1. Normal left ventricular systolic function. Ejection fraction of 55%. 2. 59-year-old white male presents with complaints of chest pain and shortness of breath. Abnormal myocardial perfusion imaging suggesting ischemia in the distribution of the left anterior descending artery. For further evaluation of the patient's coronary status, a cardiac catheterization was recommended. Patient underwent left heart catheterization with left and right coronary angiogram, and LV angiogram today. The findings are as follows. 3. Moderate to heavy calcification in the proximal to mid left and descending artery. High-grade stenosis in the mid LAD, of around 90% just before the second septal rrt. Mild diffuse disease in the mid and distal segments of the arteries. Mild diffuse disease in the other vessels. Normal LV ejection fraction of 55%. LVEDP of 30 mmHg. Based on the cardiac catheterization data, for further management of the patient's condition, PCI of the LAD lesion was thought to be appropriate. I discussed and reviewed the cardiac catheterization data with Dr. Cisneros. Dr. Cisneros agreed with this plan and will be assuming the further care of this patient. 4. Restenosis high. Recommendations * Continue current medical management and risk factor modification. Diagnostic RX Recommendation: PCI w/o planned CABG LV EDP: 30 mmHg Ventriculography Ejection Fraction: 55.0 % Left Ventriculography Findings: * The LV gram was performed the COTTON projection. The LV cavity appears to be of normal size. The overall ejection fraction was around 55%. No filling defects were noted. No significant mitral valve prolapse or mitral regurgitation. The LVEDP was 30 mmHg. Pressures Phase:Rest AO : 95 / 59 ( 74 ) @ 4:02:00 AM 103 / 64 ( 81 ) @ 4:06:00 AM 123 / 66 ( 90 ) @ 4:12:00 AM LV : 136 / 8 / @ 4:10:00 AM 132 / 14 / @ 4:11:00 AM 133 / 11 / @ 4:11:00 AM Clinical Evaluation EBL: 5mL-10mL Procedural Details Procedure Consent Obtained. Pre-Procedure Time Out. Identified patient by full name and date of as verbalized by the patient/guarantor. Does the consent match the physician's order: Yes. Accurate & Complete Informed Consent: Yes. Inpatient/Outpatient History & Physical on Chart: Yes. If H&P is completed, is and addenduem needed: No; If yes, is the addendum complete: N/A. Visualize and Verify Site with Patient/Guarantor: N/A. Relevant Radiology Images available: N/A. Pre-op teaching completed and patient verbalized understanding. The risks, benefits, and alternatives of sedation and/or procedure were discussed by physician. The patient agrees to continue. Procedure started. [facility] Clinical Fraility Score: 4: Vulnerable. Operations Expert Indications: Other-abnormal stress test. Chest Pain Symptom Assessment: Typical Angina Symptoms. Cardiovascular Instability: No. Correct patient, site and procedure confirmed by cath team. PERRLA. Strong, equal hand tobacco sampler bilaterally. Lungs clear x 5 lobes. IV Site on Arrival: 20 gauge in the left anticubital. IV Fluids: 0.9% NaCl at KVO. 0 mL infused prior to [employer]. Pre Procedural Pulses: bilateral dorsalis pedis was 1+. Pre Procedural Pulses: bilateral posterior tibial was 2+. Pre Procedural Pulses: bilateral radial was 3+. Oxygen started at 2liters/min via nasal canula. bilateral groins was prepped with chloroprep then draped in the usual sterile fashion. right radial was prepped with chloroprep then draped in the usual sterile fashion. Physician notified. Baseline sample Acquired. HR: 60 BPM. Physician arrived. Equipment: 6F - Radial. Cardiac Cath Pack. ACIST Manifold Kit Model BT 2000. Heparinized Saline (2 units/mL), 1000 mL bag. Physician scrubbed in. Immediate Pre-Procedure Time Out. Correct Patient: Yes; Correct Procedure: Yes; Correct Site: Yes; Correct Patient Position: Yes; Correct Supplies: Yes; Dried Flammable Prep: Yes; Blood Products Available: N/A;. Lidocaine 1% infiltrated to the right radial. Arterial access obtained. A 5 indian Aldo catheter in over wire. Multiple views taken of left coronary artery. Called Dr Cisneros to come look at pictures. Catheter redirected to the RCA. Multiple views taken of right coronary artery. Catheter removed over the exchange wire. A 5 indian Angled Pig catheter in over wire. EDP Sample taken: LV 136/8,30; HR: 56 BPM; SpO2: 97%. LV gram performed in COTTON @ 10 mL/second for a total of 30 mL. EDP Sample taken: LV 132/14,28; HR: 55 BPM; SpO2: 97%. Pullback taken: LV Off; AO Off; Mean: , Peak to Peak: , SEP: ; HR: 59 BPM; SpO2: 96%. EDP Sample taken: LV 133/11,33; HR: 55 BPM; SpO2: 96%. Catheter removed over the exchange wire. Sheath flushed periodically to maintain patency. Dr Cisneros arrived to discuss procedure. Dr Richardson scrubbed out. A TR Band was successful obtaining hemostatsis at the Right Radial artery insertion site. TR band placed. Hemostasis obtained. Post Procedure: Pulses reassessed and unchanged. PERRLA. Strong, equal hand tobacco sampler bilaterally. No VTE prophylaxis required. Total IV fluids: 280 mL. Contrast type used: Omnipaque 300 mgI/mL, 500 mL bottle. Post-op diagnosis: single vessel CAD, high EDP. Complications: none. Estimated blood loss: 5mL-10mL. Medication's Wasted: Lidocaine 1% = 18 mL. Medication's Wasted: Nitro = 49.8 mg. Medication's Wasted: Heparin = 1000 units. Medication's Wasted: Other = versed 1 mg. Medication's Wasted: Other = fentanyl 50 mcg. Procedure completed. Patient transferred by wheelchair to 1st floor. Vital chart was stopped. Access Site Site: Right Radial artery Sheath Size: 6 Fr Hemostasis Method: TR Band Hemostasis Success: Successful Procedure Medications Start: 8:44 AM Stop: 8:44 AM Medication: Fentanyl Amount: 50 mcg Route: I.V. Start: 8:52 AM Stop: 8:52 AM Medication: Versed Amount: 1 mg Route: I.V. Start: 8:59 AM Stop: 8:59 AM Medication: Verapamil Amount: 5 mg Route: I.A. Start: 8:59 AM Stop: 8:59 AM Medication: Nitrogylcerin Amount: 200 mcg Route: I.A. Start: 9:00 AM Stop: 9:00 AM Medication: 0.9% Saline Amount: 250 ml Route: I.V. bolus Start: 9:01 AM Stop: 9:01 AM Medication: Heparin Amount: 5000 units Route: I.V. I, the attending physician, have reviewed and verified all procedure medications. Yes, all medications given per verbal order History/Risk Factors Hypertension: No Dyslipidemia: Yes Peripheral Arterial Disease (PAD): No Myocardial Infarction (DC): No Obesity: Yes Renal Disease: No Prior Interventions PCI: No CABG: No Valve Surgery: No Report Signatures Finalized by Dr Juliet Richardson MD [facility] on 06/03/2020 06:18 PM
[2020-06-03] MEDS: dextrose 5%-sod chloride 0.45% 1,000 ML 100 ML IV ×2 (11:18→20:31)
[2020-06-03] MEDS: FUROsemide 10 mg/mL SDV 2mL 20 MG IVP (11:19)
--- NOTE | 2020-06-03 14:55 | PC.NURSE ---
lATE ENTRY DOCUMENTATION - PATIENT ARRIVAL RECEIVED PATIENT FROM CHIEF TECHNICIAN AT 0940. PATIENT IS ALERT AND ORIENTED. REPORT RECEIVED FROM CHIEF TECHNICIAN NURSES. TR BAND IN PLACE AND INFLATED. RIGHT HAND IS WARM TO TOUCH WITH BRISK CAP REFILL. PALPABLE RADIAL PULSE. NO HEMATOMA PRESENT. INSTRUCTED PATIENT TO NOTIFY NURSE OF PAIN, BLEEDING, NUMBNESS OR ANY OTHER CONCERNS. PATIENT VERBALIZED UNDERSTANDING.
--- NOTE | 2020-06-03 16:30 | PC.NURSE ---
TR BAND REMOVAL TR BAND REMOVED. 2X2 APPLIED AND COVERED WITH TEGADERM. NO S/S OF A HEMATOMA. PATIENT DOES NOT COMPLAIN OF PAIN. NURSE WILL CONTINUE TO MONITOR.
[2020-06-03] MEDS: amlodipine 5 mg Tablet PO (19:01)
--- NOTE | 2020-06-03 19:03 | PC.NURSE ---
TRINA DURAN FROM DR. FRAUSTO GIVE AMLODIPINE 5MG STAT. DUE TO BP READING OF 166/74. NURSE WILL CONTINUE TO MONITOR.
[2020-06-03] MEDS: tamsulosin 0.4 mg Capsule PO (20:29)
[2020-06-03] MEDS: metoprolol tartrate 25 mg Tablet PO (20:30)
[2020-06-03] MEDS: atorvastatin 40 mg Tablet PO (20:30)
[2020-06-04] VITALS (54 sets, daily range): BP systolic 114–164; BP diastolic 64–103; PULSE 52–84; RESP 14–33; TEMP 36.6–37.1; O2SAT 91–100
[2020-06-04] MEDS: aspirin 81 mg EC Tablet PO (05:23)
[2020-06-04] MEDS: amlodipine 5 mg Tablet PO ×2 (05:23→20:53)
--- NOTE | 2020-06-04 08:25 | P.PN_ITS ---
Subjective Subjective: Interval history: This is note from 06/04/2020 -forgot to put in the chart patient is feeling okay. He has not had any chest pain or unusual shortness of breath. He is scheduled for PCI of the LAD lesion to today. Medications: Reviewed: Yes Medication Review Details: Current Medications Acetaminophen (Acetaminophen 325 Mg Tablet) 650 mg PO Q6H PRN PRN Reason: MILD PAIN Al Hydrox/Mg Hydrox/Simethicone (Xzxp-Gon-Tytzxxeyc-Sujey 30 Ml Udc) 30 ml PO Q15M PRN PRN Reason: INDIGESTION Al Hydrox/Mg Hydrox/Simethicone (Lzev-Mmw-Vsdcxpqhv-Sujey 30 Ml Udc) 30 ml PO Q15M PRN PRN Reason: INDIGESTION Albuterol Sulfate (Albuterol 2.5 Mg/0.5 Ml Neb) 2.5 mg INHALATION QID PRN PRN Reason: shortness of breath or wheezing Last Admin: 06/04/20 19:55 Dose: 2.5 mg Documented by: Albuterol Sulfate (Albuterol 8 Gm Mdi) 2 puff INHALATION Q4H PRN PRN Reason: Shortness Of Breath Alprazolam (Alprazolam 0.25 Mg Tablet) 0.25 mg PO TID PRN PRN Reason: ANXIETY Amlodipine Besylate (Amlodipine 5 Mg Tablet) 5 mg PO BID@ [facility] Last Admin: 06/05/20 04:11 Dose: 5 mg Documented by: Aspirin (Aspirin 81 Mg Ec Tablet) 81 mg PO DAILY@04 [facility] Last Admin: 06/05/20 04:11 Dose: 81 mg Documented by: Atorvastatin Calcium (Atorvastatin 40 Mg Tablet) 40 mg PO DAILY [facility] Last Admin: 06/04/20 08:31 Dose: 40 mg Documented by: Atropine Sulfate (Atropine 1 Mg/Ml Sdv 1 Ml) 0.5 mg IVP PRN PRN PRN Reason: Symptomatic bradycardia Fentanyl (Fentanyl 50 Mcg/Ml Inj 2ml) 50 mcg IVP PRN PRN PRN Reason: Prior to sheath removal Tirofiban/Sodium Chloride (Aggrastat) 12.5 mg in 250 mls @ 18.7 mls/hr IV .[id number] [facility]; Protocol Last Admin: 06/05/20 04:08 Dose: Not Given Documented by: Ibuprofen (Ibuprofen 200 Mg Tablet) 400 mg PO PRN [facility] Magnesium Hydroxide (Magnesium Hydroxide 30 Ml Udc) 30 ml PO DAILY PRN PRN Reason: CONSTIPATION Magnesium Hydroxide (Magnesium Hydroxide 30 Ml Udc) 30 ml PO DAILY PRN PRN Reason: CONSTIPATION Metoprolol Tartrate (Metoprolol Tartrate 25 Mg Tablet) 12.5 mg PO Q12H [facility] Last Admin: 06/04/20 20:53 Dose: 12.5 mg Documented by: Naloxone HCl (Naloxone 0.4 Mg/Ml Sdv) 0.1 mg IVP Q2M PRN PRN Reason: RESPIRATORY RATE < 8/MIN Nitroglycerin (Nitroglycerin 0.4 Mg Sublingual Tablet) 0.4 mg SUBLINGUAL Q5M PRN PRN Reason: chest pain Nitroglycerin (Nitroglycerin 0.4 Mg Sublingual Tablet) 0.4 mg SUBLINGUAL Q5M PRN PRN Reason: CHEST PAIN Non-Formulary Medication (Lnhmgtspkh-Oizscepk-Zkfsjjhfof [Breztri Aerosphere]) 2 inh INHALATION BID [facility] Last Admin: 06/04/20 17:18 Dose: Not Given Documented by: Non-Formulary Medication (Glucos Sul 5afu-Uge-Hwzel-C-Mn [Glucosamine Chondroitin]) 1 cap PO BID@ [facility] Last Admin: 06/05/20 04:09 Dose: Not Given Documented by: Non-Formulary Medication (Lung Renew) 1 cap PO BID [facility] Last Admin: 06/04/20 17:18 Dose: Not Given Documented by: Non-Formulary Medication (Turmeric Curcumin ) 500 mg PO DAILY@04 [facility] Last Admin: 06/05/20 04:09 Dose: Not Given Documented by: Tamsulosin HCl (Tamsulosin 0.4 Mg Capsule) 0.4 mg PO DAILY@ [facility] Last Admin: 06/04/20 20:53 Dose: 0.4 mg Documented by: Temazepam (Temazepam 15 Mg Capsule) 15 mg PO BEDTIME PRN PRN Reason: INSOMNIA Ticagrelor (Ticagrelor 90 Mg Tablet) 90 mg PO BID [facility] Last Admin: 06/05/20 06:19 Dose: 90 mg Documented by: Vitals/I&O/Wt Last Vital Signs Temp 97.2 F L 06/05/20 07:22 Pulse 69 06/05/20 07:22 Resp 22 H 06/05/20 07:22 BP 147/76 06/05/20 07:22 Pulse Ox 95 06/05/20 07:22 06/04/20 06/05/20 06/05/20 22:59 06:59 14:59 Intake Total 662.383 / 815.716 350 / 1165.716 Output Total 1475 / 1950 1050 / 3000 Balance -812.617 / -1134.284 -700 / -1834.284 Physical Exam Narrative: EXAM NARRATIVE: GENERAL: The patient is alert and oriented times three. Not in any acute distress. HEENT: No significant pallor, icterus or lymphadenopathy. Oral cavity: There are no mucous membrane lesions. NECK: Trachea appears to be central. No masses noted. No JVD or thyromegaly appreciated. No carotid bruit. RESPIRATORY: Chest is symmetrical. No intercostals muscle retraction or any accessory muscle activation. There is no chest wall tenderness. Breath sounds are heard bilaterally. No rales or rhonchi heard. No evidence of any co nsolidation. BREASTS: Deferred. HEART: The heart sounds are normal. No S3 or S4. Short systolic murmur in the aortic area. No diastolic murmurs. No pericardial rub. ABDOMEN: No vessel pulsations or distention. No tenderness. No organomegaly appreciated. No abdominal bruit. Bowel sounds are normally heard. : Deferred. RECTAL: Deferred. LYMPHATIC: No lymphadenopathy noted in the neck or groin. EXTREMITIES: The radial arterial puncture site has no hematoma bleeding. MUSCULOSKELETAL: No acute joint deformities or swelling. SKIN: There are no significant scars or skin rash noted. NEUROPSYCHIATRIC: The patient is alert and oriented x3. Appears to be in a good mood. The higher functions are grossly within normal limits. No tremors or rigidity noted. Const: COMMON NORMALS: alert Resp: COMMON NORMALS: clear to auscultation bilaterally AUSCULTATION: clear to auscultation bilaterally Neuro: SENSORIUM/ORIENTATION: Yes alert Data : 05/28/20 13:30 05/28/20 13:30 A&P Assessment and plan (1) Abnormal cardiovascular stress test: Patient is scheduled for the PCI of the LAD lesion today. Dr. Cisneros will be performing the procedure. The procedure was explained to the patient in detail which is understood well and consented to proceed Status: Acute (2) Dyslipidemia: Continue on the current medications Status: Acute (3) SOB (shortness of breath): This could be multifactorial. Ischemia could be contributing factor. Patient is known to have COPD. Continue on the current treatment for the COPD. Status: Acute (4) Elevated blood pressure reading: Currently normotensive. Continue on the current medications Status: Acute Additional A&P Information After the procedure, patient will be kept in the hospital for observation and possible discharge home in the morning Attestations Medical Necessity Statement*: Patient is here in the hospital for complex coronary intervention ;possible discharge home in the morning. Coding Level of Care Code Acute Subway Train Driver for Yaneli Ordonez Diagnoses Abnormal cardiovascular stress test R94.39 Dyslipidemia E78.5 SOB (shortness of breath) R06.02 Elevated blood pressure reading R03.0
[2020-06-04] MEDS: dextrose 5%-sod chloride 0.45% 1,000 ML 100 ML IV (08:28)
[2020-06-04] MEDS: atorvastatin 40 mg Tablet PO (08:31)
--- NOTE | 2020-06-04 09:18 | PC.CHAP ---
Pastoral Care Encounter/Spiritual Assessment Type of Contact [] Declined vice president research visit [] Patient/Family/Request visit [] Outpatient visit [] Follow-up visit [] Physician referral [] Code/Alert [x] Routine visit [] Staff referral [] Actively dying [] Patient sleeping [] Family support [] [] Out of room [] Palliative care [] [] Receiving care in room [] Pre-surgical visit [] Trauma [] Long length of stay [] ICU visit [] Other: Relational/Emotional Strength [] Patient feels connected with others/family/visitors/staff [] Distress [] Loneliness/isolation [] Abandonment Spirituality of Patient [] Person of Darling [] Attends Mormonism of their Darling [] Believes in Prayer [] Reads Bible or Mu-Ism materials [] There are Spiritual issues to be addressed Clinical Rn Interventions [x] Prayer [x] Active listening [x] Non-anxious presence [x] Spiritual/emotional support [] Crisis/trauma care [] Spiritual counseling [] Bereavement support [] Provided bereavement packet [] Provided Bible/devotional materials [] Provided toy/stuffed animal, coloring book to patient or family member [] Provided Communion [] Anointing/[place] [] Salvation [x] Completed spiritual assessment [] Other: Impact on Illness or Injury [] Angry [] Fearful [] Anxious [] Often cries [] Exhaustion [] Unable to work [] Unable to attend confucianist [] Unable to walk/stand [] Unable to read [] Unable to drive [] Unable to eat/drink [] Unable to sleep [] Unable to be with family [] Patient intubated [] Other: Summary patient having procedure at [address] ... feels pretty confident all will be resolved... Time spent with patient 15 min
--- NOTE | 2020-06-04 09:26 | PC.NURSE ---
Dr. Richardson notified patient is sinus judi, HR in 50s. SBP 140s-150s. Verbal order to change metoprolol dose to 12.5 mg, continue to monitor.
[2020-06-04] MEDS: metoprolol tartrate 25 mg Tablet 12.5 MG PO ×2 (09:48→20:53)
--- NOTE | 2020-06-04 09:58 | XACV_ITS ---
Exam Room: 111 Ht: 173 cm Wt: 104 kg BSA: 2.27 m2 Gender: Male : 1960 Any Known Allergies: No known allergies Exam Priority: Routine Procedure(s): Procedure Description: Diagnostic procedure Diagnostic Cath Status: Urgent Diagnostic Findings * LM has 0% stenosis. * RCA has 0% stenosis. * Proximal Left Anterior Descending Coronary Artery to Mid Left Anterior Descending Coronary Artery: Severe 90% stenosis, ROE: 3 flow. * Mid Left Anterior Descending Coronary Artery: Severe 95% stenosis, ROE: 3 flow. * 1st Diagonal Coronary Artery: Severe 99% stenosis, ROE: 0 flow. * pCIRC: Moderate 50% stenosis, ROE: 3 flow. * Coronary angiography shows right dominance. PCI Status: Elective PCI Indication: Staged PCI Interventional Findings * Proximal Left Anterior Descending Coronary Artery to Mid Left Anterior Descending Coronary Artery: 90% stenosis treated with MDT R ELISABETH 4.0X15 CHANI, MDT NC EUPHORA RX 4.96A39AL BALLOON, and AB MINI TREK 1.50X6 RX BALLOON. 0% residual stenosis, ROE: 3 flow. * Mid Left Anterior Descending Coronary Artery: 95% stenosis treated with AB TREK 2.50X12 RX BALLOON, AB MINI TREK 2.00X20 RX BALLOON, and MDT R ELISABETH 3.0X12 CHANI. 0% residual stenosis, ROE: 3 flow. * 1st Diagonal Coronary Artery: 99% stenosis treated with two AB MINI TREK 2.00X12 RX BALLOON and MDT R ELISABETH 2.25X18 CHANI. 0% residual stenosis, ROE: 3 flow. * Patient was brought in today for CSI atherectomy using 1.25 bur. After somewhat difficulty we were able to cross proximal highly calcified nodule in LAD and mid highly calcified subtotally occluded lesion. Coronary Viper wire was exchanged with the help of microcatheter. Multiple runs of CSI atherectomy using 1.25 bur was used first in distal mid LAD lesion and then in proximal LAD lesion. Both lesions were then dilated with balloon angioplasty followed by drug-eluting stent placement. Both stents were then postdilated with noncompliant balloon. In the process of placement of proximal stent we lost the diagonal vessel. It was rewired using pilot boat deckhand wire. Balloon angioplasty was performed in the diagonal 1 jailed by the proximal stent. No restorationist of flow was noted. Possible dissection in the ostial segment of the diagonal or plaque shift was noted. We then placed drug-eluting stent into the diagonal 1 branch restoring ROE-3 flow. Excellent angiographic result with ROE-3 flow was achieved in LAD and diagonal.. Conclusions 1. There is severe coronary artery disease with two vessel disease. 2. Proximal Left Anterior Descending Coronary Artery to Mid Left Anterior Descending Coronary Artery was treated with Drug Eluting Stent and two Balloon. 3. Mid Left Anterior Descending Coronary Artery was treated with two Balloon and Drug Eluting Stent. 4. 1st Diagonal Coronary Artery was treated with two Balloon and Drug Eluting Stent. Recommendations * 1-Return to inpatient for close monitoring and routine cath care 2-Risk factor modification for secondary prevention 3-Statin and aspirin 81 mg life--long, if tolerated 4-Continue Plavix 75mg p.o. daily for at least one year. We will assess at the end of one year again to continue if further or not 5-Continue optimal medical management 6-Follow up with cardiology in four weeks and your primary care in 10 days. Diagnostic RX Recommendation: PCI w/o planned CABG Pressures Phase:Rest AO : 113 / 61 ( 82 ) @ 6:29:00 AM 117 / 62 ( 84 ) @ 6:35:00 AM 88 / 74 ( 81 ) @ 6:41:00 AM 96 / 56 ( 73 ) @ 6:56:00 AM 169 / 85 ( 120 ) @ 7:00:00 AM 124 / 65 ( 90 ) @ 7:40:00 AM 139 / 70 ( 100 ) @ 7:57:00 AM Clinical Evaluation EBL: 5mL-10mL Procedural Details Pre-Procedure Time Out. Identified patient by full name and date of as verbalized by the patient/guarantor. Does the consent match the physician's order: Yes. Accurate & Complete Informed Consent: Yes. Inpatient/Outpatient History & Physical on Chart: Yes. If H&P is completed, is and addenduem needed: No; If yes, is the addendum complete: N/A. Visualize and Verify Site with Patient/Guarantor: N/A. Relevant Radiology Images available: N/A. Pre-op teaching completed and patient verbalized understanding. The risks, benefits, and alternatives of sedation and/or procedure were discussed by physician. The patient agrees to continue. Procedure started. AP pads applied to patient. [facility] Clinical Fraility Score: 4: Vulnerable. General Utility Maintenance Repairer Indications: Other-abnormal stress test. Chest Pain Symptom Assessment: Typical Angina Symptoms. Cardiovascular Instability: No. Dr Cisneros asked to call Anesthesia to notify them of starting a very high risk intervention. Attempted to call anesthesia. No answer. Called surgery charge nurse to notify of starting procedure and unable to get in touch with anesthesia. Correct patient, site and procedure confirmed by cath team. PERRLA. Strong, equal hand associate trainer bilaterally. Lungs clear x 5 lobes. IV Site on Arrival: 20 gauge in the left anticubital. A 18 gauge IV was started in the right anticubital using aseptic technique. IV Fluids: 0.9% NaCl at KVO. 0 mL infused prior to cath lab radiological technologist. Pre Procedural Pulses: bilateral dorsalis pedis was 2+. Pre Procedural Pulses: bilateral posterior tibial was 2+. Pre Procedural Pulses: bilateral radial was 2+. Oxygen started at 2liters/min via nasal canula. bilateral groins was prepped with chloroprep then draped in the usual sterile fashion. Baseline sample Acquired. HR: 66 BPM. Physician arrived. Equipment: 6F - Femoral. Cardiac Cath Pack. ACIST Manifold Kit Model BT 2000. Heparinized Saline (2 units/mL), 1000 mL bag. Kit, Micropuncture. Physician scrubbed in. Immediate Pre-Procedure Time Out. Correct Patient: Yes; Correct Procedure: Yes; Correct Site: Yes; Correct Patient Position: Yes; Correct Supplies: Yes; Dried Flammable Prep: Yes; Blood Products Available: N/A;. Lidocaine 1% infiltrated to the right groin. Arterial access obtained with micropuncture set. Wire and needle out. Arterial access obtained with micropuncture set. Inventory is CRD 6 FR XB 3.5 GUIDE. 6 lao XB 3.5 guide catheter was inserted over the wire. Coronary VIPER wire inserted into mid LAD. Diamondback Coronary OAS 1.25mm atherectomy device inserted over the VIPER wire. Coronary atherectomy performed to Mid LAD. Coronary atherectomy performed to Prox LAD. Coronary atherectomy performed to Prox LAD. Atherectomy device removed over VIPER wire. Runthrough guidewire was advanced through the guide catheter to lesion in the diaganol. Inflation number : 1 A AB TREK 2.50X12 RX BALLOON was prepped and advanced across the Mid LAD , then inflated to 18 SACHI for 0:19 seconds. VIPER wire out. Inflation number: 2 The AB TREK 2.50X12 RX BALLOON was reinflated across the Mid LAD, to 26 SACHI for 0:18 seconds. Balloon out. Inflation number : 3 A AB MINI TREK 2.00X20 RX BALLOON was prepped and advanced across the Mid LAD , then inflated to 12 SACHI for 0:09 seconds. Runthrough wire out of diag. Balloon out. Inflation Number : 4 A MDT R ELISABETH 3.0X12 CHANI -Lot Number# [id number] exp date 02/12/2022 was prepped and advanced across the Mid LAD. The stent was deployed at 18 SACHI for 0:21 seconds. Runthrough guidewire was advanced through the guide catheter to lesion in the diaganol. Runthrough guidewire was advanced through the guide catheter to lesion in the mid LAD. Stent balloon out over wire. Inflation number : 1 A AB MINI TREK 2.00X12 RX BALLOON was prepped and advanced across the 1st Diag , then inflated to 14 SACHI for 0:13 seconds. Balloon out. ACT drawn. Results 419 seconds. Therapeutic limits - pre-heparin administration 90-150 seconds and monitoring heparin during a vascular procedure >250 seconds. Inflation Number : 1 A MDT R ELISABETH 4.0X15 CHANI -Lot Number# [id number] exp date 03/18/2022 was prepped and advanced across the Prox LAD. The stent was deployed at 14 SACHI for 0:26 seconds. Stent balloon out over wire. Results checked. Runthrough Wire out of diag. Hi-Torque Professional Bass Fisherman 50 inserted. Professional Bass Fisherman wire out. Unable to advance into diag. Runthrough guidewire was advanced through the guide catheter to lesion in the diaganol. Runthrough Wire out of diag. Inflation number : 2 A MDT NC EUPHORA RX 4.67X58LL BALLOON was prepped and advanced across the Prox LAD , then inflated to 12 SACHI for 0:14 seconds. Inflation number: 3 The MDT NC EUPHORA RX 4.02R26IK BALLOON was reinflated across the Prox LAD, to 12 SACHI for 0:11 seconds. Inflation number: 4 The MDT NC EUPHORA RX 4.78O16LT BALLOON was reinflated across the Prox LAD, to 12 SACHI for 0:09 seconds. Balloon out. Results checked. Inflation number : 5 A AB MINI TREK 1.50X6 RX BALLOON was prepped and advanced across the Prox LAD to advance the wire. Wire pulled back, attempt to reposition it. Balloon out. Runthrough wire repositioned in LAD. VP GENETIC wire inserted into diag. Inflation number : 2 A AB MINI TREK 2.00X12 RX BALLOON was prepped and advanced across the 1st Diag , then inflated to 12 SACHI for 0:19 seconds. Inflation number: 3 The AB MINI TREK 2.00X12 RX BALLOON was reinflated across the 1st Diag, to 12 SACHI for 0:14 seconds. Balloon out. Results checked. Wire out of LAD. Inflation Number : 4 A BRUNA Salazar ELISABETH 2.25X18 CHANI -Lot Number# [id number] exp date 08/27/2021 was prepped and advanced across the 1st Diag. The stent was deployed at 14 SACHI for 0:18 seconds. Stent balloon out over wire. Results checked. Wire out. Guide catheter out. Femoral picture taken for sheath reference. Physician scrubbed out. A Suture was successful obtaining hemostatsis at the Right Femoral artery insertion site. Sheath(s) sutured into position with 2-0 silk and sterile 4x4's and Op-site applied over the site. No oozing or signs and symptoms of hematoma noted. Arterial sheath flushed and connected to tranducer and pressure bag with heparinized saline. Post Procedure: Pulses reassessed and unchanged. PERRLA. Strong, equal hand associate trainer bilaterally. No VTE prophylaxis required. Medication's Wasted: Lidocaine 1% = 2 mL. Medication's Wasted: Nitro = 49.6 mg. Total IV fluids: 100 mL. ACT drawn. Results 157 seconds. Therapeutic limits - pre-heparin administration 90-150 seconds and monitoring heparin during a vascular procedure >250 seconds. Post-op diagnosis: calcified prox LAD, abnormal stress test. Complications: none. PCI Indication: NSTE. Estimated blood loss: 5mL-10mL. Procedure completed. Patient transferred by bed to 1st floor. Access Site Site: Right Femoral artery Sheath Size: 6 Fr Hemostasis Method: Suture Hemostasis Success: Successful Procedure Medications Start: 11:14 AM Stop: :14 AM Medication: Versed Amount: 1 mg Route: I.V. Start: 11:14 AM Stop: : AM Medication: Fentanyl Amount: 25 mcg Route: I.V. Start: 11: AM Stop: : AM Medication: Fentanyl Amount: 25 mcg Route: I.V. Start: 11: AM Stop: : AM Medication: Heparin Amount: 7000 units Route: I.V. Start: 11:29 AM Stop: 11:29 AM Medication: Heparin Amount: 3000 units Route: I.V. Start: 11:43 AM Stop: 11:43 AM Medication: Versed Amount: 0.5 mg Route: I.V. Start: 11:35 AM Stop: 11:35 AM Medication: Versed Amount: 0.5 mg Route: I.V. Start: 11:47 AM Stop: 11:47 AM Medication: Versed Amount: 1 mg Route: I.V. Start: 11:49 AM Stop: 11:49 AM Medication: Aggrastat 12.5 mg/250 mL Amount: 52 ml Route: I.V. bolus Start: 11:49 AM Stop: 11:49 AM Medication: Fentanyl Amount: 25 mcg Route: I.V. Start: 11:51 AM Stop: 11:51 AM Medication: Aggrastat 12.5 mg/250 mL Amount: 18.7 ml/hr Route: I.V. drip Start: 11:56 AM Stop: 11:56 AM Medication: Versed Amount: 1 mg Route: I.V. Start: 11:57 AM Stop: 11:57 AM Medication: Fentanyl Amount: 25 mcg Route: I.V. Start: 12:00 PM Stop: 12:00 PM Medication: Morphine Amount: 4 mg Route: I.V. Start: 12:00 PM Stop: 12:00 PM Medication: Nitrogylcerin Amount: 200 mcg Route: I.C. Start: 12:13 PM Stop: 12:13 PM Medication: Versed Amount: 1 mg Route: I.V. Start: 12:19 PM Stop: 12:19 PM Medication: Fentanyl Amount: 50 mcg Route: I.V. Start: 12:26 PM Stop: 12:26 PM Medication: Versed Amount: 1 mg Route: I.V. Start: 12:36 PM Stop: 12:36 PM Medication: Fentanyl Amount: 50 mcg Route: I.V. Start: 12:37 PM Stop: 12:37 PM Medication: Nitrogylcerin Amount: 200 mcg Route: I.C. Start: 12:44 PM Stop: 12:44 PM Medication: Versed Amount: 1 mg Route: I.V. Start: 12:49 PM Stop: 12:49 PM Medication: Versed Amount: 1 mg Route: I.V. Start: 12:49 PM Stop: 12:49 PM Medication: Fentanyl Amount: 50 mcg Route: I.V. Start: 1:00 PM Stop: 1:00 PM Medication: Fentanyl Amount: 50 mcg Route: I.V. Start: 1:14 PM Stop: 1:14 PM Medication: Heparin Amount: 5000 units Route: I.V. I, the attending physician, have reviewed and verified all procedure medications. Yes, all medications given per verbal order History/Risk Factors Hypertension: No Dyslipidemia: Yes Peripheral Arterial Disease (PAD): No Myocardial Infarction (NE): No Obesity: Yes Renal Disease: No Prior Interventions PCI: No CABG: No Valve Surgery: No Report Signatures Finalized by Meenu Cisneros MD on 06/15/2020 07:23 PM
--- NOTE | 2020-06-04 11:10 | W.PM.OPSUD ---
Surgery/Procedure H&P Update DATE OF PROCEDURE: June 04, 2020 DATE H&P PERFORMED: 06/03/20 H&P UPDATE INFORMATION: I have reviewed H&P completed within last 30 days, I have examined patient prior to procedure and No changes to prior documentation PREOP DIAGNOSIS: ASHD/Abnormal stress test, highly calcified proximal and mid LAD stenosis PLANNED PROCEDURE: Operation Date: 06/03/20 08:30 Proposed Procedures p left Cardiac Catheterization 23436 R94.39(Left) - Juliet Richardson MD Operation Date: 06/04/20 10:00 Proposed Procedures p Left Cardiac Catheterization(Left) - Meenu Cisneros MD PATIENT REASSESSED PRIOR TO SEDATION, WITH NO CHANGE NOTED: Yes PHYSICAL EXAM: alert, oriented x 3, clear to auscultation bilaterally and regular rate & rhythm AIRWAY EVAL/ANESTHESIA PLAN: ASA II, Risks, benefits & alternatives of sedation and/or procedure discussed and Patient agrees to continue as planned
--- NOTE | 2020-06-04 13:30 | PC.NURSE ---
Patient to CSU from laboratory supervisor at 1330. 2 nurse verification of site, asymptomatic. Patient educated on activity restrictions. Verbalized understanding. Call light in reach, nurse to continue to monitor.
[2020-06-04] MEDS: ticagrelor 90 mg Tablet 180 MG PO (14:13)
[2020-06-04] MEDS: sodium chloride 0.9% 1,000 ML 75 ML IV (14:16)
[2020-06-04 18:03] LABS: Partial Thromboplastin Time 77.3 SECONDS (23.9-36.7)
--- NOTE | 2020-06-04 18:15 | PC.NURSE ---
Dr. Cisneros notified patient PTT was 77.3 at 1650. Telephone order to pull sheath at 1830. RBTO.
--- NOTE | 2020-06-04 18:56 | PC.NURSE ---
Sheath pulled at 1832. Direct pressure held for 20 minutes until hemostasis achieved. Patient tolerated well. VSS. Site asymptomatic, dressing applied CDI. Patient reeducated on activity restrictions, verbalized understanding. Nurse to continue to monitor.
--- NOTE | 2020-06-04 19:06 | PC.NURSE ---
Patient reports SOB, faint expiratory wheezing upon auscultation. RT notified. RT to administer inhaler.
--- NOTE | 2020-06-04 19:15 | PC.NURSE ---
Dr. Cisneros notified of patient's increased SOB and expiratory wheezes. Verbal order to discontinue IVF and administer 40 mg IVP lasix once time. Nurse to continue to monitor.
[2020-06-04] MEDS: FUROsemide 10 mg/mL SDV 4mL 40 MG IVP (19:26)
[2020-06-04] MEDS: tamsulosin 0.4 mg Capsule PO (20:53)
[2020-06-05] VITALS (7 sets, daily range): BP systolic 130–148; BP diastolic 71–85; PULSE 63–75; RESP 18–22; TEMP 36.2–36.6; O2SAT 91–95
[2020-06-05] MEDS: aspirin 81 mg EC Tablet PO (04:11)
[2020-06-05] MEDS: amlodipine 5 mg Tablet PO (04:11)
[2020-06-05] MEDS: ticagrelor 90 mg Tablet PO (06:19)
--- NOTE | 2020-06-05 06:34 | PC.NURSE ---
NURSING NOTE: PT HAD SHEATH PULLED AT APPROXIMATELY 1830 LAST EVENING. ALL VS AND ASSESSMENTS CHARTED. SITE WITHOUT SWELLING, DRAINAGE OR HEMATOMA. PT UP AND WALKING AT 0200 THIS MORNING WITH NO C/O PAIN OR DIZZINESS NOTED. CURRENTLY RESTING WITH EYES CLOSED, RESP EVEN AND NON LABORED. NO DISTRESS NOTED AT THIS TIME.
--- NOTE | 2020-06-05 09:07 | P.DS_ITS ---
Discharge Providers Date of Discharge: June 05, 2020 Attending Provider at Discharge: Juliet Richardson MD Primary Care Provider: Francis Barnes Diagnoses at Discharge Discharge Diagnosis (1) Dyslipidemia: Status: Acute Permanent problem details: Patient is on Lipitor and is advised to continue On the current medications (2) SOB (shortness of breath): Status: Resolved Permanent problem details: Most likely related to the ischemia. Currently has improved. (3) Atherosclerotic heart disease eagle coronary artery w/angina pectoris: Status: Acute Permanent problem details: Patient was found to have high-grade complex proximal to mid coronary artery lesion. He underwent atherectomy followed by angioplasty and stent placement. He had an uneventful post procedure course. Please see the procedure report by Dr Cisneros for details (4) Benign essential hypertension with target blood pressure below 140/90: Status: Acute Permanent problem details: Patient was started on lisinopril 5 mg p.o. daily in addition to his current medication. Reason for Visit Reason for Visit: left Cardiac Catheterization Physical Exam Narrative: EXAM NARRATIVE: GENERAL: The patient is alert and oriented times three. Not in any acute distress. HEENT: No significant pallor, icterus or lymphadenopathy. Oral cavity: There are no mucous membrane lesions. NECK: Trachea appears to be central. No masses noted. No JVD or thyromegaly appreciated. No carotid bruit. RESPIRATORY: Chest is symmetrical. No intercostals muscle retraction or any accessory muscle activation. There is no chest wall tenderness. Breath sounds are heard bilaterally. No rales or rhonchi heard. No evidence of any consolidation. BREASTS: Deferred. HEART: The heart sounds are normal. No S3 or S4. Short systolic murmur in the aortic area. No diastolic murmurs. No pericardial rub. ABDOMEN: No vessel pulsations or distention. No tenderness. No organomegaly appreciated. No abdominal bruit. Bowel sounds are normally heard. : Deferred. RECTAL: Deferred. LYMPHATIC: No lymphadenopathy noted in the neck or groin. EXTREMITIES: The radial arterial puncture site has no hematoma bleeding. MUSCULOSKELETAL: No acute joint deformities or swelling. SKIN: There are no significant scars or skin rash noted. NEUROPSYCHIATRIC: The patient is alert and oriented x3. Appears to be in a good mood. The higher functions are grossly within normal limits. No tremors or rigidity noted. Discharge Data Data Completed and Pending: Completed Studies During Hospitalization Category Date Time Status AUTOMOBILE MECHANIC HELPER request for service Routin e Exams 06/03/20 08:30 Completed Pending at discharge Category Date Time Status AUTOMOBILE MECHANIC HELPER request for service Routin e Exams 06/04/20 09:58 Taken BMP [Basic [employer] lic Panel] Routine Lab 06/05/20 08:57 Ordered Labs from last 24 hours 06/04/20 16:50 APTT 77.3 H Vitals: Last Vital Signs Temp 97.2 F L 06/05/20 07:22 Pulse 74 06/05/20 08:45 Resp 18 06/05/20 08:40 BP 147/76 06/05/20 07:22 Pulse Ox 94 06/05/20 08:40 Discharge Plan Discharge Patient Disposition: Home Condition: Stable Prescriptions: New Brilinta 90 mg Tablet 90 mg PO BID 30 Days Qty: 60 RF: 5 lisinopril 5 mg tablet 5 mg PO DAILY 3 Days Qty: 30 RF: 5 Continued atorvastatin [Lipitor] 40 mg tablet 40 mg PO DAILY 30 Days Qty: 30 RF: 5 tamsulosin 0.4 mg capsule 0.4 mg PO DAILY@21 RF: 0 Breztri Aerosphere 160-9-4.8 mcg/actuation HFA aerosol inhaler 2 inh inhalation BID RF: 0 albuterol sulfate 2.5 mg /3 mL (0.083 %) solution for nebulization 2.5 mg inhalation QID PRN (Reason: shortness of breath or wheezing) RF: 0 nitroglycerin 0.4 mg tablet, sublingual 0.4 mg sublingual Q5M PRN (Reason: chest pain) 30 Days Qty: 30 RF: 3 aspirin 81 mg Tablet,Delayed Release (Dr/Ec) 81 mg PO DAILY@04 RF: 0 ibuprofen 200 mg Tablet 400 mg PO PRN RF: 0 albuterol sulfate [Ventolin HFA] 90 mcg/actuation HFA aerosol inhaler 2 puff INHALATION Q4H PRN (Reason: Shortness Of Breath) RF: 0 Glucosamine Chondroitin 550-30-1 mg Capsule 1 cap PO BID@ RF: 0 Lung Renew 1 cap PO BID RF: 0 Turmeric Curcumin 500 mg PO DAILY@04 RF: 0 amlodipine 10 mg tablet 5 mg PO BID@ RF: 0 metoprolol tartrate 25 mg tablet 25 mg PO Q12H RF: 0 Discharge Orders: Discharge Order (Routine); Ordered 06/05/20 Ordered By: Juliet Richardson Referrals: Juliet Richardson MD [Physician] - 07/09/20 2:30 pm (You have a cardiology follow up with Dr. Richardson at [facility] on July 09 at 2:30pm) Alyssa Handley FNP [Nurse Practitioner] - 06/12/20 10:00 am (You have a post procedure follow up with INDIA Leonard at [facility] on June 12 at 10:00am) Discharge Diet: Advance as tolerated Discharge Activity: Increase activity as tolerated Patient Instructions: Lisinopril (By mouth), Ticagrelor (By mouth), Left Heart Catheterization (DC), Coronary Angioplasty (DC), Post Angiogram Home Care Instructions Activity Restrictions/Additional Instructions: Avoid any weight lifting or climbing stairs for the next 3 days. Please follow the post cardiac catheterization instructions Appointment the [facility] to be seen by the nurse practitioner in 1 week. Appointment with me in the office in 1 month. In the event of him developing any unusual pain or swelling of the arterial puncture sites or any unusual chest pain, please come back to hospital or contact our office Stand Alone Forms: Work/School Release Discharge Attestations Time Spent in Discharge Care*: greater than 30 min Quality Metrics Clinical Quality Measures During this hospital stay, did patient experience: None Coding Level of Care Code Acute Real Estate Specialist for Chg Fwd History Detailed Exam Detailed Medical Decision Making Moderate Complexity Diagnoses Dyslipidemia E78.5 SOB (shortness of breath) R06.02 Atherosclerotic heart disease eagle coronary artery w/angina pectoris I25.119 Benign essential hypertension with target blood pressure below 140/90 I10 Time Spent (min) 30
[2020-06-05] MEDS: atorvastatin 40 mg Tablet PO (09:09)
[2020-06-05] MEDS: metoprolol tartrate 25 mg Tablet 12.5 MG PO (09:09)
[2020-06-05] MEDS: lisinopril 5 mg Tablet PO (09:15)
[2020-06-05 09:51] LABS: Blood Urea Nitrogen 15 mg/dL (8-23); Calcium 9.4 mg/dL (8.5-10.5); Carbon Dioxide 26 mmol/L (22-29); Chloride 93 mmol/L (98-107); Glomerular Filtration Rate 85.8 mL/min (90-130); Glucose 185 mg/dL (65-115); Osmolality Calculated 278 mOsm/kg (285-295); Sodium 131 mmol/L (136-145)
[2020-06-05 09:58] LABS: Anion Gap 16.5 (5-19); Potassium 4.5 mmol/L (3.5-5.1)
--- NOTE | 2020-06-05 10:20 | PC.NURSE ---
Dr. Richardson called with results of BMP. Patient cleared for discharge.
--- NOTE | 2020-06-05 10:53 | PC.NURSE ---
Discharge instructions given per the physician's orders. Patient verbalized understanding of teaching and medication changes and did not have any further questions. IVs have been removed. Patient is dressed. will be ride home. Nurse to continue to monitor.
== END 2020-06-05 11:19 | disposition home or self-care (01) ==
LOC: CSU 13:51
PROVIDERS: Admitting Provider Internal Medicine Cardiovascular Disease; PCP Physician Assistant Medical; Visit Provider Internal Medicine Cardiovascular Disease
DX: I25.119 Atherosclerotic heart disease of native coronary artery with unspecified angina pectoris (principal); R94.39 Abnormal result of other cardiovascular function study; E78.5 Hyperlipidemia, unspecified; R06.02 Shortness of breath; I10 Essential (primary) hypertension; M19.90 Unspecified osteoarthritis, unspecified site; J44.9 Chronic obstructive pulmonary disease, unspecified; Z82.49 Family history of ischemic heart disease and other diseases of the circulatory system; F17.290 Nicotine dependence, other tobacco product, uncomplicated
CPT/HCPCS: 36415; 80048; 80053; 80061; 85025; 85347; 85610; 85730; 86850; 86900; 93452; 94640; C1724; C1725; C1769; C1874; C1887; C1894; C9602; G0378; J1644; J1940; J2250; J2270; J3010; J3246; J3490; J3535; J7030; J7611; J7799; Q0163; Q9967

== ENCOUNTER → 2020-06-12 11:05 | Outpatient (BNVA) | payer OTHER, SELFPAY | PROVIDERS: PCP Physician Assistant Medical; Visit Provider Nurse Practitioner Family | DX: I25.119 Atherosclerotic heart disease of native coronary artery with unspecified angina pectoris (principal); I10 Essential (primary) hypertension | CPT/HCPCS: 80048 ==

== ENCOUNTER 2021-01-08 09:20 | Outpatient (CLI) | payer OTHER, SELFPAY ==
[2021-01-08 10:12] LABS: Basophils # 0.1 10^3/uL (0.0-0.1); Basophils % 1.1 %; Eosinophils # 0.4 10^3/uL (0.0-0.8); Eosinophils % 3.3 %; Hematocrit 45.3 % (42.0-52.0); Hemoglobin 14.5 g/dL (11.7-16.6); Lymphocytes % 17.5 %; Mean Corpuscular Hemoglobin 28.5 pg (28.0-34.0); Mean Corpuscular Volume 89.2 fl (80-94); Mean Platelet Volume 9.9 fL (7.4-10.4); Monocytes # 0.9 10^3/uL (0.2-0.9); Monocytes % 7.9 %; Neutrophils # 7.71 10^3/uL (1.8-7.7); Neutrophils % 69.1 %; Nucleated Red Blood Cells % 0 %; Platelet Count 327 10^3/cmm (130-400); Red Blood Count 5.08 10^6/uL (4.1-5.3); Red Cell Distribution Width 12.9 % (12.1-15.1); White Blood Count 11.2 10^3/uL (4.0-10.0)
[2021-01-08 12:10] LABS: Add Urine Microscopic? NO; Charge for UA Resulting for Rev
[2021-01-08 12:30] LABS: Bilirubin Urine Neg (Negative); Blood Urine Neg (Negative); Glucose Urine UA Norm (Normal); Ketones Urine Negative (Negative); Leukocyte Esterase Urine Negative (Negative); Nitrate Urine Negative (Negative); Protein Urine Neg (Negative); Specific Gravity, Urine 1.025 (1.005-1.030); Urine Appearance Clear (CLEAR); Urine Color Yellow (Yellow); Urobilinogen Urine Norm (Negative); pH Urine 5 (5-7)
--- NOTE | 2021-01-08 18:01 | ONC FU_ITS ---
Dr. Swain follow up note Patient: Geovanni Servin Unit #: [id number]: 1960 Dicatated By: Maral Swain M.D.Date of Visit:Jan 08, 2021 Onc Med Follow-up/Prog Note History of Present Illness: Mr. Geovanni Servin, is a 60-year-old gentleman with a history of coronary artery disease, status post 3 stent placement in May 2019, history of COPD for which she is being treated with multiple inhalers including steroids based breztri. As per patient, during his follow-up visit in September 2020 his lab work-up done on October 10, 2020 showed white blood count 13.2, hemoglobin 13.6 hematocrit 40.2 platelets 292,000 with a normal differential, repeat CBC on October 15, 2020 showed white blood count 12.7 hemoglobin 14.2 hematocrit 42.7 platelets 308,000 with mild neutrophilia. Again labs. On December 16, 2020 showed white blood count 12.3 hemoglobin 14.5 hematocrit 42.7 platelets 328,000, at that time patient was referred to hematology clinic for evaluation Patient denies any recurrent infection but has history of BPH and increased urgency, and the past he was treated with probably Flomax with good response but then patient stopped taking it. Denies any dysuria or hematuria denies any hemoptysis or hematemesis denies any night sweats denies any recurrent fever denies any weight loss, denies any peripheral lymphadenopathy, denies any abdominal fullness. Denies any skin infection denies any sinus problem. Denies any sore throat but poor dentition with some loose teeth, off and on dental pain, patient chew tobacco, used to smoke but quit smoking about 10 years ago. Medications: Albuterol Sulfate 1 Ampule (of (2.5 mg/3ml) 0.083%) Nebulization solution Inhalation four times a day, Albuterol Sulfate 2 Puff(s) (of 108 (90 base) mcg/act) Aerosol Powder, Breath Activated Inhalation q 4 hours PRN, Aspirin 1 Tablet (of 81 mg) Tablet, chewable Oral daily, B-12 2 Tablet (of 1000 mcg) Oral daily, Glucosamine HCl 1 Tablet (of 500 mg) Oral daily, metFORMIN HCl 1 Tablet (of 500 mg) Oral b.i.d., Montelukast Sodium 1 Tablet (of 10 mg) Oral at bedtime, Vitamin D3 1 Tablet (of 50 mcg ) Capsule Oral daily Allergies: No Known Allergies. Review of Systems: Review of Systems is not available for this patient. Vital Signs: Performed on Jan 08, 2021 11:04 Weight - 224.6 lbs (HIGH) BSA - 0.00 sq.m BMI - 0.00 Temperature - 96.6 F (LOW) Pulse - 64 /min Respiration - 22 /min BP - 150/81 mm(hg) (HIGH) O2 Sat - 97 % Pain - 2 Fatigue - 8 Performance Status: 0 - Fully active, able to carry on all predisease activities without restrictions. (ECOG) Physical Examination: ENMT - No mouth sores, no thrush, no jaundice no cervical lymphadenopathy, Poor oral hygiene and dentition, Respiratory - Lungs are clear to auscultation, Cardiovascular - Regular rate and rhythm of heart, Abdomen - Soft, bowel sounds present, Extremities - No visible edema. Lab/Imaging: Most recent lab results are not available for this patient. Impression: Isolated, mild leukocytosis/neutrophilia, etiology reactive versus myeloproliferative disorder but most likely reactive probably due to chronic long-acting steroid inhaler breztri, other possibility could be chronic inflammation especially gingivitis or cystitis as patient has history of BPH, underlying myeloproliferative disorder cannot be ruled out but less likely Coronary artery disease status post stenting COPD on inhalers including steroid-based Poor dental hygiene/gingivitis due to chronic tobacco use Plan: Discussed with patient regarding his labs white blood count of 11.2 hemoglobin 14.5 hematocrit 45.3 platelets 327,000 neutrophils 69.1% ANC 7710. Clinically, patient doing well with no obvious signs symptom suggestive of acute infection but chronic oral/gingival inflammation or increased urine urgency due to BPH, patient is being followed by urology and noncompliant with Flomax. Patient said he will call urology for Flomax prescription. Etiology of isolated mild leukocytosis/neutrophilia could be multifactorial but most likely due to steroids based inhaler breztri, other possibility could be underlying subacute infection, will do urine analysis, patient was also advised to see dentist for evaluation and dental/gum care. Patient was advised to hold breztri for 3 weeks and return to clinic in 3 weeks with CBC, if there is a worsening or progression of leukocytosis, may consider further evaluation with whole blood flow cytometry Signed By: Maral Swain M.D. <<Signature on File>>
== END 2021-01-08 09:21 | disposition home or self-care (01) ==
LOC: ONCMED 09:21
PROVIDERS: PCP Physician Assistant; Visit Provider Internal Medicine Hematology & Oncology
DX: D72.829 Elevated white blood cell count, unspecified (principal); I25.10 Atherosclerotic heart disease of native coronary artery without angina pectoris; J44.9 Chronic obstructive pulmonary disease, unspecified; Z79.52 Long term (current) use of systemic steroids; K05.10 Chronic gingivitis, plaque induced; F17.210 Nicotine dependence, cigarettes, uncomplicated; Z79.899 Other long term (current) drug therapy
CPT/HCPCS: 36415; 81003; 85025; 99205

== ENCOUNTER 2021-02-02 07:58 | Outpatient (CLI) | payer OTHER, SELFPAY ==
[2021-02-02 08:44] LABS: Basophils # 0.1 10^3/uL (0.0-0.1); Basophils % 1.1 %; Eosinophils # 0.5 10^3/uL (0.0-0.8); Hematocrit 44.5 % (42.0-52.0); Lymphocytes # 2.1 10^3/uL (0.8-4.8); Mean Corpuscular HGB Conc 31.5 g/dL (30.0-36.0); Mean Corpuscular Hemoglobin 28.8 pg (28.0-34.0); Mean Corpuscular Volume 91.6 fl (80-94); Mean Platelet Volume 9.7 fL (7.4-10.4); Monocytes # 1.1 10^3/uL (0.2-0.9); Neutrophils # 9.26 10^3/uL (1.8-7.7); Neutrophils % 70.1 %; Nucleated Red Blood Cells % 0 %; Platelet Count 332 10^3/cmm (130-400); Red Blood Count 4.86 10^6/uL (4.1-5.3); Red Cell Distribution Width 12.6 % (12.1-15.1); White Blood Count 13.2 10^3/uL (4.0-10.0)
[2021-02-02 09:02] LABS: Alanine Aminotransferase 22 U/L (0-41); Albumin Level 4.2 g/dL (3.5-5.2); Alkaline Phosphatase 77 IU/L (40-130); Anion Gap 14.9 (5-19); Aspartate Amino Transferase 16 U/L (0-40); Blood Urea Nitrogen 12 mg/dL (8-23); Calcium 9.7 mg/dL (8.5-10.5); Carbon Dioxide 27 mmol/L (22-29); Chloride 96 mmol/L (98-107); Globulin 3.5 g/dL (1.3-4.6); Glomerular Filtration Rate 114.3 mL/min (90-130); Glucose 144 mg/dL (65-115); Osmolality Calculated 278 mOsm/kg (285-295); Potassium 4.9 mmol/L (3.5-5.1); Sodium 133 mmol/L (136-145); Total Bilirubin 0.3 mg/dL (0.15-1.2); Total Protein 7.7 g/dL (6.6-8.7)
--- NOTE | 2021-02-02 09:46 | ONC FU_ITS ---
Dr. Swain follow up note Patient: Geovanni Jaquez Unit #: [id number]: 1960 Dicatated By: Maral Swain M.D.Date of Visit:Feb 02, 2021 Onc Med Follow-up/Prog Note History of Present Illness: Mr. Geovanni Jaquez, is a 60-year-old gentleman with a history of coronary artery disease, status post 3 stent placement in May 2019, history of COPD for which she is being treated with multiple inhalers including steroids based breztri. As per patient, during his follow-up visit in September 2020 his lab work-up done on October 10, 2020 showed white blood count 13.2, hemoglobin 13.6 hematocrit 40.2 platelets 292,000 with a normal differential, repeat CBC on October 15, 2020 showed white blood count 12.7 hemoglobin 14.2 hematocrit 42.7 platelets 308,000 with mild neutrophilia. Again labs. On December 16, 2020 showed white blood count 12.3 hemoglobin 14.5 hematocrit 42.7 platelets 328,000, at that time patient was referred to hematology clinic for evaluation Patient denies any recurrent infection but has history of BPH and increased urgency, and the past he was treated with probably Flomax with good response but then patient stopped taking it. Denies any dysuria or hematuria denies any hemoptysis or hematemesis denies any night sweats denies any recurrent fever denies any weight loss, denies any peripheral lymphadenopathy, denies any abdominal fullness. Denies any skin infection denies any sinus problem. Denies any sore throat but poor dentition with some loose teeth, off and on dental pain, patient chew tobacco, used to smoke but quit smoking about 10 years ago. Came for follow-up, denies any specific complaints, no fever chills, no nausea or vomiting, no diarrhea or constipation still has poor dentition, patient was asked to see dentist but patient said he cannot afford due to financial reasons. Denies any night sweats, denies any recurrent fever denies any lymphadenopathy or abdominal fullness, patient did not use his steroid-containing inhaler for the last 2 weeks or so . Medications: Albuterol Sulfate 1 Ampule (of (2.5 mg/3ml) 0.083%) Nebulization solution Inhalation four times a day, Albuterol Sulfate 2 Puff(s) (of 108 (90 base) mcg/act) Aerosol Powder, Breath Activated Inhalation q 4 hours PRN, Aspirin 1 Tablet (of 81 mg) Tablet, chewable Oral daily, B-12 2 Tablet (of 1000 mcg) Oral daily, Glucosamine HCl 1 Tablet (of 500 mg) Oral daily, metFORMIN HCl 1 Tablet (of 500 mg) Oral b.i.d., Montelukast Sodium 1 Tablet (of 10 mg) Oral at bedtime, Vitamin D3 1 Tablet (of 50 mcg ) Capsule Oral daily Allergies: No Known Allergies. Review of Systems: Review of Systems is not available for this patient. Vital Signs: Vitals are not available for this patient. Performance Status: 0 - Fully active, able to carry on all predisease activities without restrictions. (ECOG) Physical Examination: ENMT - No mouth sores but poor dentition/, no lymphadenopathy, Respiratory - Lungs are clear to auscultation, Cardiovascular - Regular rate and rhythm of heart, Abdomen - Soft, bowel sounds present, Extremities - No visible edema. Lab/Imaging: Most recent lab results are not available for this patient. Impression: Isolated, mild leukocytosis/neutrophilia, etiology reactive versus myeloproliferative disorder but most likely reactive probably due to chronic long-acting steroid inhaler breztri, other possibility could be chronic inflammation especially gingivitis or cystitis as patient has history of BPH, underlying myeloproliferative disorder cannot be ruled out but less likely Coronary artery disease status post stenting COPD on inhalers including steroid-based Poor dental hygiene/gingivitis due to chronic tobacco use Plan: Discussed with patient regarding his labs white blood count 13.2 compared to 11.2 previously hemoglobin 14 hematocrit 44.5 platelets 332,000 CMP within normal limits, urinalysis within normal limits Clinically, patient is doing well with no signs symptom suggestive of acute infection but patient has poor oral hygiene/dentition and dental evaluation was recommended but patient said he cannot afford because of financial reason., Patient was advised to hold steroid containing inhaler which he did but his follow-up CBC showed progressive leukocytosis, which could be multifactorial, underlying myeloproliferative disorder cannot be ruled out so at this point,Patient was advised to resume Breztri inhaler, and we will consider whole blood flow cytometry and patient return to clinic in 3 weeks with CBC and whole blood flow cytometry report to discuss further plan Signed By: Maral Swain M.D. <<Signature on File>>
[2021-02-17 10:34] LABS: Miscellaneous Test See Scanned Lab Rpt
== END 2021-02-02 07:59 | disposition home or self-care (01) ==
PROVIDERS: PCP Physician Assistant; Visit Provider Internal Medicine Hematology & Oncology
DX: D72.829 Elevated white blood cell count, unspecified (principal); D72.0 Genetic anomalies of leukocytes; I25.10 Atherosclerotic heart disease of native coronary artery without angina pectoris; J44.9 Chronic obstructive pulmonary disease, unspecified; Z79.51 Long term (current) use of inhaled steroids; K05.10 Chronic gingivitis, plaque induced; F17.220 Nicotine dependence, chewing tobacco, uncomplicated; Z79.899 Other long term (current) drug therapy
CPT/HCPCS: 36415; 80053; 85025; 88184; 88185; 99214

== ENCOUNTER 2021-02-26 09:25 | Outpatient (CLI) | payer OTHER, SELFPAY ==
[2021-02-26 09:49] LABS: Basophils # 0.1 10^3/uL (0.0-0.1); Basophils % 1.1 %; Eosinophils # 0.5 10^3/uL (0.0-0.8); Eosinophils % 3.9 %; Hematocrit 43.5 % (42.0-52.0); Hemoglobin 13.9 g/dL (11.7-16.6); Lymphocytes # 1.8 10^3/uL (0.8-4.8); Lymphocytes % 14.8 %; Mean Corpuscular Hemoglobin 28.4 pg (28.0-34.0); Mean Platelet Volume 9.7 fL (7.4-10.4); Monocytes % 8.4 %; Neutrophils # 8.86 10^3/uL (1.8-7.7); Neutrophils % 71.2 %; Nucleated Red Blood Cells % 0 %; Platelet Count 328 10^3/cmm (130-400); Red Blood Count 4.89 10^6/uL (4.1-5.3); Red Cell Distribution Width 12.7 % (12.1-15.1); White Blood Count 12.4 10^3/uL (4.0-10.0)
--- NOTE | 2021-02-26 17:36 | ONC FU_ITS ---
Dr. Swain follow up note Patient: Geovanni Jaquez Unit #: [id number]: 1960 Dicatated By: Maral Swain M.D.Date of Visit:Feb 26, 2021 Onc Med Follow-up/Prog Note History of Present Illness: Mr. Geovanni Jaquez, is a 60-year-old gentleman with a history of coronary artery disease, status post 3 stent placement in May 2019, history of COPD for which she is being treated with multiple inhalers including steroids based breztri. As per patient, during his follow-up visit in September 2020 his lab work-up done on October 10, 2020 showed white blood count 13.2, hemoglobin 13.6 hematocrit 40.2 platelets 292,000 with a normal differential, repeat CBC on October 15, 2020 showed white blood count 12.7 hemoglobin 14.2 hematocrit 42.7 platelets 308,000 with mild neutrophilia. Again labs. On December 16, 2020 showed white blood count 12.3 hemoglobin 14.5 hematocrit 42.7 platelets 328,000, at that time patient was referred to hematology clinic for evaluation Patient denies any recurrent infection but has history of BPH and increased urgency, and the past he was treated with probably Flomax with good response but then patient stopped taking it. Denies any dysuria or hematuria denies any hemoptysis or hematemesis denies any night sweats denies any recurrent fever denies any weight loss, denies any peripheral lymphadenopathy, denies any abdominal fullness. Denies any skin infection denies any sinus problem. Denies any sore throat but poor dentition with some loose teeth, off and on dental pain, patient chew tobacco, used to smoke but quit smoking about 10 years ago. Whole blood flow cytometry done on February 02, 2021 shows no aberrant myeloid or lymphoid population detected Came for follow-up, denies any specific complaints except poor dentition still chew tobacco, now considering seeing oral surgeon. No fever chills, no nausea or vomiting, no diarrhea constipation, no dysuria, no sinus problem, no sore throat, no night sweats, no lymphadenopathy, no weight loss Medications: Albuterol Sulfate 1 Ampule (of (2.5 mg/3ml) 0.083%) Nebulization solution Inhalation four times a day, Albuterol Sulfate 2 Puff(s) (of 108 (90 base) mcg/act) Aerosol Powder, Breath Activated Inhalation q 4 hours PRN, Aspirin 1 Tablet (of 81 mg) Tablet, chewable Oral daily, B-12 2 Tablet (of 1000 mcg) Oral daily, Glucosamine HCl 1 Tablet (of 500 mg) Oral daily, metFORMIN HCl 1 Tablet (of 500 mg) Oral b.i.d., Montelukast Sodium 1 Tablet (of 10 mg) Oral at bedtime, Vitamin D3 1 Tablet (of 50 mcg ) Capsule Oral daily Allergies: No Known Allergies. Review of Systems: Review of Systems is not available for this patient. Vital Signs: Performed on Feb 26, 2021 11:31 Weight - 222.6 lbs (LOW) BSA - 0.00 sq.m BMI - 0.00 Temperature - 98.0 F (LOW) Pulse - 57 /min (LOW) Respiration - 18 /min BP - 120/69 mm(hg) O2 Sat - 95 % (LOW) Pain - 0 Fatigue - 0 Performance Status: 0 - Fully active, able to carry on all predisease activities without restrictions. (ECOG) Physical Examination: ENMT - Poor oral hygiene with gingivitis and poor dentition, no jaundice, no thrush, Respiratory - Lungs are clear to auscultation , Cardiovascular - Regular rate and rhythm of heart, Abdomen - Soft, bowel sounds present, Extremities - No visible edema. Lab/Imaging: Most recent lab results are not available for this patient. Impression: Isolated, mild leukocytosis/neutrophilia, etiology reactive versus myeloproliferative disorder but most likely reactive probably due to chronic long-acting steroid inhaler breztri, other possibility could be chronic inflammation especially gingivitis or cystitis as patient has history of BPH, underlying myeloproliferative disorder cannot be ruled out but less likely, Whole blood flow cytometry done on February 02, 2021 shows no aberrant myeloid or lymphoid population detected Coronary artery disease status post stenting COPD on inhalers including steroid-based Poor dental hygiene/gingivitis due to chronic tobacco use Plan: Discussed with patient regarding his labs white blood count 12.4 compared to 13.2 previously hemoglobin 13.9 hematocrit 43.5 platelets 328,000 with a normal differential Clinically, patient doing well with no obvious signs symptom suggestive of acute infection, his follow-up CBC shows persistent mild leukocytosis etiology remains unclear could be due to chronic gingivitis/poor oral dentition as whole blood flow cytometry done recently shows no evidence of aberrant myeloid or lymphoid population. At this point we will continue to monitor and repeat CBC in 3 months if it shows progression, will consider bone marrow evaluation. Patient was advised to improve and maintain good oral hygiene and quit chewing tobacco, he was offered any assistance he may need. And he was also encouraged to see oral surgery for evaluation. Signed By: Maral Swain M.D. <<Signature on File>>
== END 2021-02-26 09:26 | disposition home or self-care (01) ==
PROVIDERS: PCP Physician Assistant; Visit Provider Internal Medicine Hematology & Oncology
DX: D72.829 Elevated white blood cell count, unspecified (principal); D72.0 Genetic anomalies of leukocytes; I25.10 Atherosclerotic heart disease of native coronary artery without angina pectoris; J44.9 Chronic obstructive pulmonary disease, unspecified; K05.10 Chronic gingivitis, plaque induced; Z72.0 Tobacco use; Z79.51 Long term (current) use of inhaled steroids
CPT/HCPCS: 36415; 36592; 85025; 99214

== ENCOUNTER 2021-06-11 10:43 | Outpatient (CLI) | payer OTHER, SELFPAY ==
[2021-06-11 11:14] LABS: Basophils # 0.1 10^3/uL (0.0-0.1); Basophils % 0.9 %; Eosinophils # 0.5 10^3/uL (0.0-0.8); Eosinophils % 4.2 %; Hematocrit 41.9 % (42.0-52.0); Hemoglobin 13.4 g/dL (11.7-16.6); Lymphocytes # 2.5 10^3/uL (0.8-4.8); Lymphocytes % 20.9 %; Mean Corpuscular Hemoglobin 28.9 pg (28.0-34.0); Mean Corpuscular Volume 90.5 fl (80-94); Mean Platelet Volume 9.3 fL (7.4-10.4); Monocytes % 8.6 %; Neutrophils # 7.78 10^3/uL (1.8-7.7); Neutrophils % 64.7 %; Nucleated Red Blood Cells % 0 %; Platelet Count 294 10^3/cmm (130-400); Red Blood Count 4.63 10^6/uL (4.1-5.3); Red Cell Distribution Width 13.3 % (12.1-15.1)
--- NOTE | 2021-06-12 07:54 | ONC FU_ITS ---
Elke De Anda Progress Note Patient: Geovanni Jaquez Unit #: [id number]: 1960 Dicatated By: Elke De Anda N.P.Date of Visit:Jun 11, 2021 Onc MED Follow-up/Prog Note Chief Complaint: Isolated leukocytosis History of Present Illness: Mr. Geovanni Jaquez, is a 60-year-old gentleman with a history of coronary artery disease, status post 3 stent placement in May 2019, history of COPD for which she is being treated with multiple inhalers including steroids based breztri. As per patient, during his follow-up visit in September 2020 his lab work-up done on October 10, 2020 showed white blood count 13.2, hemoglobin 13.6 hematocrit 40.2 platelets 292,000 with a normal differential, repeat CBC on October 15, 2020 showed white blood count 12.7 hemoglobin 14.2 hematocrit 42.7 platelets 308,000 with mild neutrophilia. Again labs. On December 16, 2020 showed white blood count 12.3 hemoglobin 14.5 hematocrit 42.7 platelets 328,000, at that time patient was referred to hematology clinic for evaluation Patient denies any recurrent infection but has history of BPH and increased urgency, and the past he was treated with probably Flomax with good response but then patient stopped taking it. Denies any dysuria or hematuria denies any hemoptysis or hematemesis denies any night sweats denies any recurrent fever denies any weight loss, denies any peripheral lymphadenopathy, denies any abdominal fullness. Denies any skin infection denies any sinus problem. Denies any sore throat but poor dentition with some loose teeth, off and on dental pain, patient chew tobacco, used to smoke but quit smoking about 10 years ago. Whole blood flow cytometry done on February 02, 2021 shows no aberrant myeloid or lymphoid population detected Patient presents today for follow-up. He continues to have fatigue but he still able to perform all activities. His appetite has been good. He denies fever, chills, night sweats. No sinus drainage or mouth sores. He does experience shortness of breath with activity related to his COPD. He also has a chronic cough. He denies chest pain. No GI problems no problems. No joint pain or bone pain. No headaches or dizziness. Review Of Symptoms: See above. Past Medical History: Chronic obstructive pulmonary disease Hyperlipidemia Type II diabetes Vitamin B 12 deficiency Vitamin D deficiency Past Surgical History: COVID Vaccine #2 Right femur Right shoulder Triple stent placement Allergies: No Known Allergies. Medications: Albuterol Sulfate 1 Ampule (of (2.5 mg/3ml) 0.083%) Nebulization solution Inhalation four times a day Albuterol Sulfate 2 Puff(s) (of 108 (90 base) mcg/act) Aerosol Powder, Breath Activated Inhalation q 4 hours PRN Aspirin 1 Tablet (of 81 mg) Tablet, chewable Oral daily B-12 2 Tablet (of 1000 mcg) Oral daily Glucosamine HCl 1 Tablet (of 500 mg) Oral daily Losartan Potassium 1 Tablet (of 50 mg) Oral daily metFORMIN HCl 1 Tablet (of 500 mg) Oral b.i.d. Montelukast Sodium 1 Tablet (of 10 mg) Oral at bedtime Turmeric 1 Tablet (of 500 mg) Oral daily Vitamin D3 1 Tablet (of 50 mcg ) Capsule Oral daily Family History: Mr. Jaquez's mother is : chronic obstructive pulmonary disease. Mr. Jaquez's father is : hypertension, and chronic obstructive pulmonary disease. Social History: Mr. Jaquez is . He drinks occasionally. He has indicated exposure to the following products: chewing tobacco. Chewing tobacco. Physical Examination: Performed on Jun 11, 2021 12:29: Height - 66 in, Weight - 227.4 lbs (HIGH), BSA - 2.11 sq.m, BMI - 36.70 (HIGH), Temperature - 97.5 F (LOW), Pulse - 66 /min, Respiration - 16 /min, BP - 114/66 mm(hg), O2 Sat - 95 % (LOW), Pain - 0, and Fatigue - 8. Performance Status: 0 - Fully active, able to carry on all predisease activities without restrictions. (ECOG) Constitutional Alert, cooperative, oriented. Mood and affect appropriate. Appears close to chronological age. Well nourished. Well developed. Head Normocephalic; no scars. Respiratory Expiratory wheezing left lung field Cardiovascular Regular rate and rhythm of heart without murmurs, gallops or rubs. Abdomen Non-tender, non-distended, no masses, ascites or hepatosplenomegaly. Good bowel sounds. No guarding or rebound tenderness. Gastrointestinal Extremities No visible deformities, no cyanosis, clubbing or edema. Pulses 3+ and equal bilaterally. Musculoskeletal No tenderness or swelling, normal range of motion without obvious weakness. Psychiatric Alert and oriented times three. Coherent speech. Verbalizes understanding of our discussions today. Laboratory: Test performed on Jun 11, 2021 11:04 WBC 12.0 10 3/uL RBC 4.63 10 6/uL HGB 13.4 g/dL HCT 41.9 % MCV 90.5 fl MCH 28.9 pg MCHC 32.0 g/dL RDW 13.3 % Platelet Count 294 10 3/cmm MPV 9.3 fL Neutrophils 7.78 10 3/uL Lymphocytes 2.5 10 3/uL Monocytes 1.0 10 3/uL Eosinophils 0.5 10 3/uL Basophils 0.1 10 3/uL Neutrophil % 64.7 % Lymphocyte % 20.9 % Monocyte % 8.6 % Eosinophil % 4.2 % Basophils % 0.9 % NRBC % 0 % Impression: Isolated, mild leukocytosis/neutrophilia, etiology reactive versus myeloproliferative disorder but most likely reactive probably due to chronic long-acting steroid inhaler mabeltrtad, other possibility could be chronic inflammation especially gingivitis or cystitis as patient has history of BPH, underlying myeloproliferative disorder cannot be ruled out but less likely, Whole blood flow cytometry done on February 02, 2021 shows no aberrant myeloid or lymphoid population detected Coronary artery disease status post stenting COPD on inhalers including steroid-based Poor dental hygiene/gingivitis due to chronic tobacco use Plan: Labs were reviewed with patient. His WBC 12.0, hemoglobin 13.4 hematocrit 41.9, his platelet count is at 294,000, his neutrophils are 7.78. Whole blood flow cytometry showed no evidence of aberrant myeloid or lymphoid population. WBC remains mildly elevated at 12.0 although it has improved from 12.4 previously. Patient is not showing any signs or symptoms of a disease process related to his leukocytosis. At this point we will continue to monitor and repeat CBC in 3 months if it shows progression, will consider bone marrow evaluation. Patient was advised to quit chewing. His leukocytosis may also have to do with his steroid inhaler that he uses for his COPD. Signed By: Elke De Anda N.P. <<Signature on File>>
== END 2021-06-11 10:44 | disposition home or self-care (01) ==
PROVIDERS: Internal Medicine Hematology & Oncology; PCP Physician Assistant; Visit Provider Nurse Practitioner Family
DX: D72.829 Elevated white blood cell count, unspecified (principal); I25.10 Atherosclerotic heart disease of native coronary artery without angina pectoris; J44.9 Chronic obstructive pulmonary disease, unspecified; Z79.51 Long term (current) use of inhaled steroids; K05.11 Chronic gingivitis, non-plaque induced; Z72.0 Tobacco use
CPT/HCPCS: 36415; 85025; 99214

== ENCOUNTER 2021-07-15 08:52 | Outpatient (CLI) | payer OTHER, SELFPAY ==
--- NOTE | 2021-07-15 13:51 | PFTS_ITS ---
Date of Study:07/15/21 Date of Dictation: MECHANICS: Forced vital capacity (FVC) is reduced. Forced expiratory volume in one second (FEV1) is reduced. FEV1/FVC is reduced. FLOW VOLUME LOOP: Reduced flow at all lung volumes with significant scooping. LUNG VOLUMES: Total lung capacity (TLC) is increased. Residual volume (RV) is increased. DIFFUSING CAPACITY FOR CARBON MONOXIDE: Mild reduced. INTERPRETATION: The postbronchodilator spirometry is consistent with severe airflow obstruction. There is no significant postbronchodilator response. Lung volumes are consistent with hyperinflation and air trapping. Gas exchange (DLCO) is mildly reduced. MTDD
== END 2021-07-15 08:53 | disposition home or self-care (01) ==
LOC: RT 08:57
PROVIDERS: PCP Physician Assistant; Visit Provider Internal Medicine Pulmonary Disease
DX: J44.9 Chronic obstructive pulmonary disease, unspecified (principal); R06.02 Shortness of breath
CPT/HCPCS: 94060; 94618; 94726; 94729; J7611

== ENCOUNTER 2021-10-27 09:56 | Oncology outpatient (recurring) (ONCR) | payer OTHER, SELFPAY ==
[2021-10-27 10:51] LABS: Basophils # 0.1 10^3/uL (0.0-0.1); Eosinophils # 0.4 10^3/uL (0.0-0.8); Eosinophils % 3.5 %; Hematocrit 41.2 % (42.0-52.0); Hemoglobin 12.8 g/dL (11.7-16.6); Lymphocytes # 1.9 10^3/uL (0.8-4.8); Lymphocytes % 18.7 %; Mean Corpuscular HGB Conc 31.1 g/dL (30.0-36.0); Mean Corpuscular Hemoglobin 28.4 pg (28.0-34.0); Mean Corpuscular Volume 91.4 fl (80-94); Mean Platelet Volume 9.6 fL (7.4-10.4); Monocytes # 0.9 10^3/uL (0.2-0.9); Monocytes % 8.6 %; Neutrophils # 6.69 10^3/uL (1.8-7.7); Neutrophils % 67.1 %; Nucleated Red Blood Cells % 0 %; Platelet Count 300 10^3/cmm (130-400); Red Blood Count 4.51 10^6/uL (4.1-5.3); Red Cell Distribution Width 13.1 % (12.1-15.1)
[2021-10-27 11:18] LABS: Alanine Aminotransferase 25 U/L (0-41); Albumin Level 3.8 g/dL (3.5-5.2); Alkaline Phosphatase 62 IU/L (40-130); Anion Gap 19.6 (5-19); Aspartate Amino Transferase 19 U/L (0-40); Blood Urea Nitrogen 14 mg/dL (8-23); Calcium 9.9 mg/dL (8.5-10.5); Carbon Dioxide 23 mmol/L (22-29); Chloride 98 mmol/L (98-107); Globulin 3.2 g/dL (1.3-4.6); Glomerular Filtration Rate 97.6 mL/min (90-130); Glucose 175 mg/dL (65-115); Osmolality Calculated 287 mOsm/kg (285-295); Potassium 4.6 mmol/L (3.5-5.1); Sodium 136 mmol/L (136-145); Total Bilirubin 0.2 mg/dL (0.15-1.2)
== END 2021-11-25 23:59 | disposition home or self-care (01) ==
PROVIDERS: PCP Physician Assistant; Visit Provider Nurse Practitioner Family
DX: D72.829 Elevated white blood cell count, unspecified (principal)
CPT/HCPCS: 36415; 80053; 85025

== ENCOUNTER 2022-02-22 09:06 | Outpatient (CLI) | payer OTHER, SELFPAY ==
--- NOTE | 2022-02-22 10:00 | USCV_ITS ---
SandorGeovanni denny Age: 61 Gender: M : 1960 Exam Date: 02/22/2022 09:15 Ordering Phys: Juliet Richardson MD ([email or web address]) Technologist: CT Exam Location: [facility] – [place] Indication: pvd, leg pain Risk Factors: Previous Vascular Surgery: RIGHT LEFT BP: 112.0 / 53.00 BP: 122.0/ 62.00 0 0 Waveform Velocity (cm/s) Velocity (cm/s) Waveform Triphasic 82.7 Iliac Prox 109.7 Triphasic Triphasic 98.8 Iliac Mid 104.4 Triphasic Triphasic 100.7 Iliac Distal 102.5 Triphasic Triphasic 108.3 PRACTICE REPRESENTATIVE 131.5 Triphasic Triphasic 82.4 SFA Prox 102.2 Triphasic Triphasic 102.2 SFA Mid 101.8 Triphasic Triphasic 90.8 SFA Dist 105.1 Triphasic Triphasic 58.0 POP 82.7 Triphasic Triphasic 65.2 GOLD BUYER 87.1 Biphasic N/A 0.0 DPA 24.3 Biphasic 1.0 JAXSON 1.0 FINDINGS Moderate Diffuse Plaques in the Iliac and Femoral Arteries Bilaterally No Doppler flow signals in the right dorsalis pedis artery Very sluggish flow in the dorsalis pedis artery on the left side Near 1.0 on both side CONCLUSIONS 1. Normal resting ABIs bilaterally, suggesting no high-grade lesion in the large vessels of both lower extremities 2. 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 Moderate diffuse scattered plaques in the iliac and femoral arteries bilaterally. No similar previous studies are available for comparison Dr Juliet Richardson MD [facility] (Electronically Signed) Final Date: 22 February 2022 11:27 S
== END 2022-02-22 09:07 | disposition home or self-care (01) ==
PROVIDERS: PCP Physician Assistant; Visit Provider Internal Medicine Cardiovascular Disease
DX: I73.9 Peripheral vascular disease, unspecified (principal); M79.604 Pain in right leg; M79.605 Pain in left leg
CPT/HCPCS: 93925

== ENCOUNTER 2022-05-14 08:53 | Oncology outpatient (recurring) (ONCR) | payer OTHER, SELFPAY ==
[2022-05-14 09:24] LABS: Basophils # 0.1 10^3/uL (0.0-0.1); Basophils % 0.8 %; Eosinophils # 0.3 10^3/uL (0.0-0.8); Eosinophils % 3.1 %; Hematocrit 43.7 % (42.0-52.0); Hemoglobin 13.7 g/dL (11.7-16.6); Lymphocytes % 18.3 %; Mean Corpuscular HGB Conc 31.4 g/dL (30.0-36.0); Mean Corpuscular Volume 89.2 fl (80-94); Mean Platelet Volume 9.2 fL (7.4-10.4); Monocytes % 9.5 %; Neutrophils # 7.24 10^3/uL (1.8-7.7); Neutrophils % 67.7 %; Nucleated Red Blood Cells % 0 %; Platelet Count 313 10^3/cmm (130-400); Red Cell Distribution Width 12.9 % (12.1-15.1); White Blood Count 10.7 10^3/uL (4.0-10.0)
[2022-05-14 09:42] LABS: Alanine Aminotransferase 24 U/L (0-41); Albumin Level 4.1 g/dL (3.5-5.2); Alkaline Phosphatase 65 U/L (40-130); Anion Gap 15.9 (5-19); Aspartate Amino Transferase 20 U/L (0-40); Blood Urea Nitrogen 14 mg/dL (8-23); Calcium 9.7 mg/dL (8.5-10.5); Carbon Dioxide 27 mmol/L (22-29); Chloride 98 mmol/L (98-107); Globulin 3.3 g/dL (1.3-4.6); Glomerular Filtration Rate 75.5 mL/min (90-130); Glucose 147 mg/dL (65-115); Osmolality Calculated 285 mOsm/kg (285-295); Potassium 4.9 mmol/L (3.5-5.1); Sodium 136 mmol/L (136-145); Total Bilirubin 0.3 mg/dL (0.15-1.2); Total Protein 7.4 g/dL (6.6-8.7)
== END 2022-05-25 23:59 | disposition home or self-care (01) ==
PROVIDERS: Internal Medicine Hematology & Oncology; PCP Physician Assistant; Visit Provider Nurse Practitioner Family
DX: D72.829 Elevated white blood cell count, unspecified (principal); D72.9 Disorder of white blood cells, unspecified; Z87.891 Personal history of nicotine dependence
CPT/HCPCS: 36415; 80053; 85025

== ENCOUNTER 2022-09-09 10:02 | Oncology outpatient (recurring) (ONCR) | payer OTHER, SELFPAY ==
[2022-09-09 10:20] VITALS: BP 147/65; PULSE 74; RESP 18; TEMP 36.8; O2SAT 92
[2022-09-09 10:36] LABS: Basophils # 0.1 10^3/uL (0.0-0.1); Basophils % 0.8 %; Eosinophils # 0.4 10^3/uL (0.0-0.8); Hematocrit 41.2 % (42.0-52.0); Hemoglobin 13.1 g/dL (11.7-16.6); Lymphocytes # 1.8 10^3/uL (0.8-4.8); Lymphocytes % 15.6 %; Mean Corpuscular HGB Conc 31.8 g/dL (30.0-36.0); Mean Corpuscular Hemoglobin 28.2 pg (28.0-34.0); Mean Corpuscular Volume 88.6 fl (80-94); Mean Platelet Volume 9.2 fL (7.4-10.4); Monocytes # 0.7 10^3/uL (0.2-0.9); Monocytes % 6.3 %; Neutrophils # 8.51 10^3/uL (1.8-7.7); Neutrophils % 72.8 %; Nucleated Red Blood Cells % 0 %; Platelet Count 303 10^3/cmm (130-400); Red Blood Count 4.65 10^6/uL (4.1-5.3); Red Cell Distribution Width 13.2 % (12.1-15.1); White Blood Count 11.7 10^3/uL (4.0-10.0)
[2022-09-09 10:59] LABS: Alanine Aminotransferase 25 U/L (0-41); Albumin Level 3.9 g/dL (3.5-5.2); Alkaline Phosphatase 69 U/L (40-130); Anion Gap 17.3 (5-19); Aspartate Amino Transferase 20 U/L (0-40); Blood Urea Nitrogen 11 mg/dL (8-23); Calcium 9.2 mg/dL (8.5-10.5); Carbon Dioxide 21 mmol/L (22-29); Chloride 99 mmol/L (98-107); Glomerular Filtration Rate 97.3 mL/min (90-130); Glucose 204 mg/dL (65-115); Osmolality Calculated 281 mOsm/kg (285-295); Potassium 4.3 mmol/L (3.5-5.1); Sodium 133 mmol/L (136-145); Total Bilirubin 0.3 mg/dL (0.15-1.2); Total Protein 6.9 g/dL (6.6-8.7)
== END 2022-09-24 23:59 | disposition home or self-care (01) ==
PROVIDERS: Internal Medicine Hematology & Oncology; PCP Physician Assistant; Visit Provider Nurse Practitioner Family
DX: D72.829 Elevated white blood cell count, unspecified (principal)
CPT/HCPCS: 36415; 80053; 85025

== ENCOUNTER 2023-03-02 13:38 | Oncology outpatient (recurring) (ONCR) | payer MEDICARE, SELFPAY ==
[2023-03-02 14:01] VITALS: BP 116/61; PULSE 76; RESP 16; TEMP 36.8; O2SAT 92
[2023-03-02 14:19] LABS: Basophils # 0.1 10^3/uL (0.0-0.1); Basophils % 0.8 %; Eosinophils # 0.3 10^3/uL (0.0-0.8); Eosinophils % 2.2 %; Hematocrit 40.9 % (37-53); Lymphocytes # 2.5 10^3/uL (0.8-4.8); Lymphocytes % 21.4 %; Mean Corpuscular HGB Conc 32.3 g/dL (30-55); Mean Corpuscular Hemoglobin 28.5 pg (27-33); Mean Corpuscular Volume 88.3 fl (82-101); Monocytes # 0.9 10^3/uL (0.2-0.9); Monocytes % 7.6 %; Neutrophils # 7.93 10^3/uL (1.8-7.7); Neutrophils % 67.2 %; Nucleated Red Blood Cells % 0 %; Platelet Count 307 10^3/cmm (157-399); Red Blood Count 4.63 10^6/uL (3.85-5.65); Red Cell Distribution Width 13.3 % (12.1-15.1)
[2023-03-02 16:42] LABS: LAB Peripheral Smear Sent for Review
== END 2023-03-27 23:59 | disposition home or self-care (01) ==
PROVIDERS: Internal Medicine; Internal Medicine Medical Oncology; PCP Physician Assistant; Visit Provider Nurse Practitioner Family
DX: D72.829 Elevated white blood cell count, unspecified (principal); D72.9 Disorder of white blood cells, unspecified; Z87.891 Personal history of nicotine dependence
CPT/HCPCS: 36415; 85025; 99214

== ENCOUNTER → 2023-12-01 13:56 | Outpatient (BNVA) | payer MEDICARE, SELFPAY | PROVIDERS: PCP Physician Assistant; Visit Provider Podiatrist Foot & Ankle Surgery | DX: L60.3 Nail dystrophy (principal); I73.9 Peripheral vascular disease, unspecified; G62.9 Polyneuropathy, unspecified; E11.42 Type 2 diabetes mellitus with diabetic polyneuropathy; Z79.84 Long term (current) use of oral hypoglycemic drugs | CPT/HCPCS: 11721 ==

== ENCOUNTER → 2024-02-02 13:40 | Outpatient (BNVA) | payer MEDICARE, SELFPAY | PROVIDERS: PCP Physician Assistant; Visit Provider Podiatrist Foot & Ankle Surgery | DX: L60.3 Nail dystrophy (principal); I73.9 Peripheral vascular disease, unspecified; G62.9 Polyneuropathy, unspecified; E11.42 Type 2 diabetes mellitus with diabetic polyneuropathy; Z79.84 Long term (current) use of oral hypoglycemic drugs | CPT/HCPCS: 11721 ==

== ENCOUNTER 2024-03-01 13:02 | Oncology outpatient (recurring) (ONCR) | payer MEDICARE, SELFPAY ==
[2024-03-01 14:05] LABS: Basophils # 0.1 10^3/uL (0.0-0.1); Basophils % 0.8 %; Eosinophils # 0.4 10^3/uL (0.0-0.8); Eosinophils % 2.7 %; Lymphocytes # 3.1 10^3/uL (0.8-4.8); Lymphocytes % 23.6 %; Mean Corpuscular Hemoglobin 28.7 pg (27-33); Mean Corpuscular Volume 89.4 fl (82-101); Mean Platelet Volume 9.5 fL (7.4-10.4); Monocytes # 1.2 10^3/uL (0.2-0.9); Monocytes % 8.9 %; Neutrophils # 8.42 10^3/uL (1.8-7.7); Neutrophils % 63.3 %; Nucleated Red Blood Cells % 0 %; Platelet Count 294 10^3/cmm (157-399); Red Blood Count 4.92 10^6/uL (3.85-5.65); Red Cell Distribution Width 13.2 % (12.1-15.1); White Blood Count 13.29 10^3/uL (3.29-11.43)
[2024-03-01 14:20] LABS: Alanine Aminotransferase 31 U/L (0-41); Albumin Level 4.2 g/dL (3.5-5.2); Alkaline Phosphatase 80 U/L (40-130); Anion Gap 15.7 (5-19); Aspartate Amino Transferase 31 U/L (0-40); Blood Urea Nitrogen 15 mg/dL (8-23); Calcium 9.6 mg/dL (8.5-10.5); Carbon Dioxide 27 mmol/L (22-29); Chloride 98 mmol/L (98-107); Creatinine Clr Calc Pharmacy 104.1802; Globulin 3.5 g/dL (1.3-4.6); Glucose 130 mg/dL (65-115); Osmolality Calculated 285 mOsm/kg (285-295); Potassium 4.7 mmol/L (3.5-5.1); Sodium 136 mmol/L (136-145); Total Bilirubin 0.3 mg/dL (0.15-1.2); Total Protein 7.7 g/dL (6.6-8.7)
[2024-03-05 07:47] LABS: Leukemia Profile (BBPL) See Report
== END 2024-03-27 23:59 | disposition home or self-care (01) ==
PROVIDERS: Internal Medicine; Visit Provider Nurse Practitioner Family
DX: D72.829 Elevated white blood cell count, unspecified (principal); Z87.891 Personal history of nicotine dependence
CPT/HCPCS: 36415; 80053; 85025; 88184; 88185; 99213

== ENCOUNTER → 2024-03-14 10:15 | Outpatient (BNVA) | payer MEDICARE, SELFPAY | PROVIDERS: Visit Provider Internal Medicine Cardiovascular Disease | DX: R07.9 Chest pain, unspecified (principal); R06.02 Shortness of breath; R00.1 Bradycardia, unspecified; I45.10 Unspecified right bundle-branch block | CPT/HCPCS: 93005 ==

== ENCOUNTER 2024-03-27 08:14 | Outpatient (CLI) | payer MEDICARE, SELFPAY ==
[2024-03-27 08:43] VITALS: BMI 37.5
--- NOTE | 2024-03-27 08:46 | ECG_ITS ---
[email or web address] Test Date: 2024-03-27 Pat Name: Geovanni Jaquez Department: Room: Gender: Male Program And Research Coordinator: : 1960 Requested By: Juliet Richardson Order Number: [id number] Christiano MD: Juliet Richardson M.D. Interpretive Statements Lung unchanged pre/post procedure; Intraprocedure shortess of breath; Symptoms resoled by discharge PROCEDURE: At the baseline, the EKG revealed normal sinus rhythm with a right bundle branch block pattern. Some nonspecific T wave changes.. The baseline heart was 75 bpm with a blood pressue of 142/69 mm of Hg Lexiscan was infused over a period of 20 seconds. A total of 0.4 milligrams of Lexiscan was infused. The stress phase was continued for a total of 5 minutes. Heart rate at the end of the stress phase was 83 bpm with a blood pressure 126/52 mm of Hg. The EKG at the peak infusion revealed no significant changes. Sestamibi was injected 20 seconds after the Lexiscan infusion. Heart rate at the end of the recovery phase was 88 bpm with a blood pressure of 131/51 mm of Hg. CONCLUSION: 1. No significant EKG changes with the LexiScan infusion 2. No LexiScan induced chest pain or cardiac arrhythmia 3. Normal blood pressure and heart rate response 4. Sestamibi/sestamibi perfusion scan pending; see separate report. Electronically Signed On 04-01-2024 17:22:46 BSA OFFICER by Juliet Richardson M.D. [email or web address]
--- NOTE | 2024-03-27 08:46 | NMCV_ITS ---
NM lizeth perf SPECT r/s* [id number] Geovanni Jaquez Age: 63 Gender: M : 1960 Exam Date: 03/27/2024 09:54 Ordering Phys: Juliet Richardson MD ([email or web address]) Technologist: KENNY Senior Exam Location: [facility] Indications: cp STRESS TEST Please see separate stress test report in [facility] for full findings IMAGE PROTOCOL Rest/Stress 1 Lexiscan Day Radiopharmaceutical Dose (mCi) Administration Site Administered by Rest: Tc-99m 10.8 IV KENNY Senior Sestamibi Stress:Tc-99m 32.9 IV KENNY Silva Sestamibi Rest: 27-Mar-2024 60 Discovery 630 Stress: 27-Mar-2024 30 Discovery 630 0.4mg Lexiscan. Supine position only as patient was unable to lay prone. SPECT RESULTS Technical Quality: Good Raw Data Analysis: Normal Image Corrections: No attenuation or motion correction applied Summed Stress Score: 0 Summed Rest Score: 5 Summed Difference Score: 0 PERFUSION FINDINGS Small area of minimal to moderately decreased tracer uptake involving the inferior wall region, with no significant reversibility FUNCTIONAL RESULTS (calculated via Gated SPECT) Stress Image LV EF (%): 77 Stress EDV (mL):88 TID: 0.57 Stress ESV (mL):20 FUNCTIONAL FINDINGS: Segmental wall motion analysis revealing no gross wall motion abnormalities IMPRESSIONS 1. Myocardial perfusion imaging revealing small area of persistent decreased tracer uptake involving the inferior wall region, suggestive of myocardial scarring versus attenuation artifact 2. Normal LV ejection fraction of 77%. 3. LV wall motion analysis revealing no gross wall motion abnormalities. 4. Normal LV volume Low probability for coronary ischemia, based on the above findings Dr Juliet Richardson MD FACC (Electronically Signed) Final Date: 27 March 2024 17:42 S
[2024-03-27] MEDS: regadenoson 0.4 Mg/5 ml Syringe IVP (10:25)
[2024-03-27 10:46] VITALS: BP 116/84; PULSE 88
== END 2024-03-27 08:15 | disposition home or self-care (01) ==
LOC: CDL 08:15
PROVIDERS: Visit Provider Internal Medicine Cardiovascular Disease
DX: R07.9 Chest pain, unspecified (principal)
CPT/HCPCS: 36415; 78452; 93017; 96374; A9500; J2785

== ENCOUNTER → 2024-04-05 13:21 | Outpatient (BNVA) | payer MEDICARE, SELFPAY | PROVIDERS: Visit Provider Podiatrist Foot & Ankle Surgery | DX: L60.3 Nail dystrophy (principal); I73.9 Peripheral vascular disease, unspecified; G62.9 Polyneuropathy, unspecified; E11.42 Type 2 diabetes mellitus with diabetic polyneuropathy | CPT/HCPCS: 11721 ==

== ENCOUNTER → 2024-06-07 13:22 | Outpatient (BNVA) | payer MEDICARE, SELFPAY | PROVIDERS: Visit Provider Podiatrist Foot & Ankle Surgery | DX: E11.42 Type 2 diabetes mellitus with diabetic polyneuropathy (principal); L60.3 Nail dystrophy; I73.9 Peripheral vascular disease, unspecified; G62.9 Polyneuropathy, unspecified; Z79.84 Long term (current) use of oral hypoglycemic drugs | CPT/HCPCS: 11721 ==

== ENCOUNTER → 2024-08-09 13:08 | Outpatient (BNVA) | payer MEDICARE, SELFPAY | PROVIDERS: Visit Provider Podiatrist Foot & Ankle Surgery | DX: E11.42 Type 2 diabetes mellitus with diabetic polyneuropathy (principal); L60.3 Nail dystrophy; I73.9 Peripheral vascular disease, unspecified; G62.9 Polyneuropathy, unspecified; Z79.84 Long term (current) use of oral hypoglycemic drugs | CPT/HCPCS: 11721 ==

== ENCOUNTER → 2024-09-14 08:54 | Outpatient (BNVA) | payer MEDICARE, SELFPAY | PROVIDERS: PCP Nurse Anesthetist, Certified Registered; Visit Provider Nurse Practitioner Family | DX: I10 Essential (primary) hypertension (principal); I25.118 Atherosclerotic heart disease of native coronary artery with other forms of angina pectoris; E78.5 Hyperlipidemia, unspecified; J44.9 Chronic obstructive pulmonary disease, unspecified; E11.9 Type 2 diabetes mellitus without complications; F17.220 Nicotine dependence, chewing tobacco, uncomplicated; Z79.84 Long term (current) use of oral hypoglycemic drugs | CPT/HCPCS: 99214 ==

== ENCOUNTER → 2024-10-11 13:04 | Outpatient (BNVA) | payer MEDICARE, SELFPAY | PROVIDERS: PCP Nurse Anesthetist, Certified Registered; Visit Provider Podiatrist Foot & Ankle Surgery | DX: E11.42 Type 2 diabetes mellitus with diabetic polyneuropathy (principal); L60.3 Nail dystrophy; I73.9 Peripheral vascular disease, unspecified; G62.9 Polyneuropathy, unspecified; Z79.84 Long term (current) use of oral hypoglycemic drugs | CPT/HCPCS: 11721 ==

== ENCOUNTER → 2024-12-19 14:57 | Outpatient (BNVA) | payer MEDICARE, SELFPAY | PROVIDERS: PCP Nurse Anesthetist, Certified Registered; Visit Provider Podiatrist Foot & Ankle Surgery | DX: E11.42 Type 2 diabetes mellitus with diabetic polyneuropathy (principal); L60.3 Nail dystrophy; I73.9 Peripheral vascular disease, unspecified; G62.9 Polyneuropathy, unspecified; Z79.84 Long term (current) use of oral hypoglycemic drugs | CPT/HCPCS: 11721 ==

== ENCOUNTER 2025-02-28 12:01 | Oncology outpatient (recurring) (ONCR) | payer MEDICARE, SELFPAY ==
[2025-02-28 12:28] LABS: Hematocrit 43.6 % (37-53); Hemoglobin 14.20 g/dL (11.27-16.99); Mean Corpuscular HGB Conc 32.6 g/dL (30-55); Mean Corpuscular Hemoglobin 29.1 pg (27-33); Mean Corpuscular Volume 89.3 fl (82-101); Nucleated Red Blood Cells % 0 %; Platelet Count 339 10^3/cmm (157-399); Red Blood Count 4.88 10^6/uL (3.85-5.65); White Blood Count 13.48 10^3/uL (3.29-11.43)
[2025-02-28 12:50] LABS: Alanine Aminotransferase 21 U/L (0-41); Albumin Level 4.5 g/dL (3.5-5.2); Alkaline Phosphatase 81 U/L (40-130); Anion Gap 15.6 (5-19); Aspartate Amino Transferase 21 U/L (0-40); Blood Urea Nitrogen 13 mg/dL (8-23); Calcium 10.0 mg/dL (8.5-10.5); Carbon Dioxide 27 mmol/L (22-29); Chloride 96 mmol/L (98-107); Globulin 3.6 g/dL (1.3-4.6); Glucose 160 mg/dL (65-115); Osmolality Calculated 282 mOsm/kg (285-295); Potassium 4.6 mmol/L (3.5-5.1); Sodium 134 mmol/L (136-145); Total Protein 8.1 g/dL (6.6-8.7)
[2025-03-01 13:02] LABS: Leukemia Profile (BBPL) See Report
== END 2025-03-27 23:59 | disposition home or self-care (01) ==
PROVIDERS: Internal Medicine; PCP Nurse Anesthetist, Certified Registered; Visit Provider Nurse Practitioner Family
DX: D72.829 Elevated white blood cell count, unspecified (principal); F17.290 Nicotine dependence, other tobacco product, uncomplicated
CPT/HCPCS: 36415; 80053; 83615; 85025; 88184; 88185; 99213

== ENCOUNTER → 2025-03-06 12:35 | Outpatient (BNVA) | payer MEDICARE, SELFPAY | PROVIDERS: PCP Nurse Anesthetist, Certified Registered; Visit Provider Podiatrist Foot & Ankle Surgery | DX: E11.8 Type 2 diabetes mellitus with unspecified complications (principal); L60.3 Nail dystrophy; I73.9 Peripheral vascular disease, unspecified; G62.9 Polyneuropathy, unspecified; E11.42 Type 2 diabetes mellitus with diabetic polyneuropathy; Z79.84 Long term (current) use of oral hypoglycemic drugs | CPT/HCPCS: 11721 ==

== ENCOUNTER → 2025-03-11 13:37 | Outpatient (BNVA) | payer MEDICARE, SELFPAY | PROVIDERS: PCP Nurse Anesthetist, Certified Registered; Visit Provider Internal Medicine Cardiovascular Disease | DX: I25.10 Atherosclerotic heart disease of native coronary artery without angina pectoris (principal); I10 Essential (primary) hypertension; I73.9 Peripheral vascular disease, unspecified; E78.5 Hyperlipidemia, unspecified; F17.220 Nicotine dependence, chewing tobacco, uncomplicated; I25.119 Atherosclerotic heart disease of native coronary artery with unspecified angina pectoris; R06.02 Shortness of breath; I25.118 Atherosclerotic heart disease of native coronary artery with other forms of angina pectoris; Z79.01 Long term (current) use of anticoagulants; I48.91 Unspecified atrial fibrillation | CPT/HCPCS: 36415; 80048; 85025; 85610; 86850; 86900; 99214 ==